=== PATIENT | female | born 1940 | race Caucasian/White ===

== ENCOUNTER 2016-11-25 09:30 | Inpatient (IN) | payer MEDICARE, OTHER ==
[~2016-11-25] VITALS: Ht 157.5 cm; Wt 73.9 kg
--- NOTE | ~2016-11-25 | HEMODYNAMI ---
PATIENT:DIANE DICK MEDICAL RECORD: [id number] : 36 LOCATION:[facility] [address] [place] [facility] [id number] ADMISSION DATE: 11/25/16 Generatedon:11/29/201610:56 Patient name: DIANE DICK Patient #: [id number] SSN: [id number] : 1940 Date of study: 11/29/2016 Page: Of Hemodynamic Procedure Report Patient Data Patient Demographics Procedure consent was obtained First Name: DIANE Gender: Female Last Name: KAPIL : 1940 [facility] Initial: F Age: 75 year(s) Patient #: [id number] Race: SSN: [id number] Additional ID: [id number] Contact details [address]: [address] [place] [address] State: [place] City: [place] Zip code: [address] Past Medical History Allergies Allergen Reaction Date Comments Reported Other allergy 11/28/2016 codeine Admission Admission Data Admission Date: 11/25/2016 Admission Time: 12:36 Admit Source: Other Insurance Payor: Medicare, Room #: D.2111 Private health insurance Height (in.): 62 BSA: 1.75 (m2) Height (cm.): 157.48 BMI: 29.84 (kg/m2) Weight (lbs.): 163.14 Weight (kg.): 74 Medications upon Admission Medications Dosage Times Administered Last Remarks per Delivery Day Date and Time Clopidogrel Yes 11/27/2016 0:00 Lab Results Lab Result Date: 11/29/2016 Lab Result Time: 0:00 Biochemistry Name Units Result Min Max BUN mg/dl 22 --(----)-* 7 18 Creatinine mg/dl 0.9 --(-*--)-- 0.6 1.3 CBC Name Units Result Min Max Hemoglobin g/dl 10.4 *-(----)-- 13.5 17.5 Procedure Procedure Types Cath Procedure PCI Procedure Coronary Stent Initial Procedure Description Procedure Date Procedure Date: 11/29/2016 Procedure Start Time: 10:40 Procedure End Time: 10:54 Procedure Staff Name Function Antonio Karimi MD Performing Physician David Burr RT Scrub Manda Garcia RN Nurse Bashir Adams RT Glove Pairer Regina Chi RT Monitor Procedure Data Cath Procedure Fluoroscopy Diagnostic fluoroscopy Total fluoroscopy Time: 3.9 time: 3.9 min min Diagnostic fluoroscopy Total fluoroscopy dose: 175 dose: 175 mGy mGy Contrast Material Contrast Material Type Amount (ml) Isovue 300 79 Entry Location Entry Primary Successful Side Size Upsize Upsize Entry Closure Succes sful Closure Location (Fr) 1 (Fr) 2 (Fr) Remarks Device Remarks Femoral Right 6 Fr Vascade artery Short Closure System Estimated blood loss: 10 ml Procedure Complications No complications Procedure Medications Medication Administration Route Dosage Oxygen NC 3 l/min Lidocaine 2% added to field 20 Heparin Flush Bag added to field 2 bags (1000units/500ml NS) 0.9% NaCl I.V. 100 ml/hr Versed I.V. 1 mg Fentanyl I.V. 50 mcg Heparin Bolus I.V. 4000 units Versed I.V. 0.5 mg Fentanyl I.V. 25 mcg Hemodynamics Rest BSA: 1.75 (m2) HGB: 10.4 (g/dl) O2 Consumption: Estimated: 168.27 (ml/min) O2 Co nsumption indexed: Estimated:96.15 (ml/min/m) Heart Rate: 85 (bpm) Snapshots Pre Cath Intra NCS Post Cath Vital Signs Time Heart Resp SPO2 etCO2 [id number] NIBP Rhythm Pain Sedation Rate (ipm) (%) (mmHg) (mmHg) (mmHg) Status Level (bpm) 10:29:14 85 16 93 0 0 116/63(92) NSR 0 (11) 10(A) , No pain 10:33:20 85 19 92 0 0 98/55(76) NSR 0 (11) 10(A) , No pain 10:37:26 84 18 92 0 0 100/58(76) NSR 0 (11) 10(A) , No pain 10:41:30 84 15 92 0 0 96/57(73) NSR 0 (11) 10(A) , No pain 10:45:36 84 13 92 0 0 100/54(68) NSR 0 (11) 9(A) , No pain 10:49:41 86 17 92 0 0 95/56(70) NSR 0 (11) 9(A) , No pain 10:53:45 87 14 91 0 0 111/63(86) NSR 0 (11) 10(A) , No pain Medications Time Medication Route Dose Verified Delivered Reason Notes Effectiveness by by 10:28:25 Oxygen NC 3 Antonio Buffie used for l/min Trev Garcia RN procedure 10:28:33 Lidocaine 2% added 20ml Antonio Antonio for local to vial Trev Karimi MD anesthetic field 10:28:40 Heparin Flush added 2 Antonio Antonio used for Bag to bags Trev Kariim MD procedure (1000units/500ml field NS) 10:28:48 0.9% NaCl I.V. 100 Antonio Buffie Per physician ml/hr Trev Garcia RN 10:40:22 Versed I.V. 1 mg Antonio Larryie for sedation Trev Garcia RN 10:40:28 Fentanyl I.V. 50 Antonio Buffie for sedation mcg Trev Garcia RN 10:44:20 Versed I.V. 0.5 Antonio Buffie for sedation mg Trev Garcia RN 10:44:26 Fentanyl I.V. 25 Antonio Buffie for sedation mcg Trev Garcia RN 10:46:19 Heparin Bolus I.V. 4000 Antoniosydnie Larryie for verifi ed units Trev Garcia RN anticoagulation with dr karimi Procedure Log Time Note 10:00:42 Bashir Adams RT(R) sent for patient. Start room use. 10:12:58 Patient Height : 62 cm 10:12:58 Patient Weight : 163.14 kg 10:13:47 Time tracking: Regular hours 10:13:51 Plan of Care:Hemodynamics will remain stable., Cardiac rhythm will remain stable., Comfort level will be maintained., Respiratory function will remain adequate., Patient/ family verbilizes understanding of procedure., Procedure tolerated without complication., Recovers from procedure without complications.. 10:13:57 Patient received from PCU to CCL 2 Alert and oriented. Tansferred to table in Supine position. 10:13:57 Warm blankets applied, and tim hugger turned on for patient comfort. 10:13:58 Correct patient and procedure confirmed by team. 10:13:59 Signed procedure consent form obtained from patient. 10:14:00 ECG and BP/O2 sat monitors applied to patient. 10:14:01 Full Disclosure recording started 10:17:00 Admit Source: Other 10:17:05 ACC Patient presents with Stable Angina CCS Anginal Class 2--Slight limitation of ordinary activity. 10:17:11 Diagnostic Cath status Elective 10:20:47 H&P Date Dictated: 11/29/2016 Within 30 days and on chart.. 10:20:51 Pre-procedure instructions explained to patient. 10:20:53 Family in waiting room. 10:20:55 Patient NPO since Midnight. 10:21:32 Is the patient allergic to Iodine/contrast media? No. 10:21:34 Is patient on blood thinner?Yes 10:21:48 ACC The patient was administered the following blood thiners within the last 24 hours: ACCPlavix 10:22:03 Patient diabetic? No. 10:22:13 Snore? No 10:22:15 Sleep apnea? No 10:22:17 Opens mouth fully? Yes 10:22:18 Sticks out tongue? Yes 10:22:29 Airway obstruction? Yes COPD 10:22:34 Dentures? Yes tight 10:22:54 IV patent on arrival in right forearm with 0.9% NaCl at [facility]. 10:26:04 Lab Result : Creatinine 0.9 mg/dl 10:26:04 Lab Result : BUN 22 mg/dl 10:26:04 Lab Result : Hemoglobin 10.4 g/dl 10:26:09 Lab results completed and on chart. 10:26:12 Left groin area was prepped with chlora-prep and draped in sterile fashion 10::14 Alarms reviewed by RVashti NVashti 10:26:17 Physician paged 10:28:14 Vital chart was started 10:28:25 Oxygen 3 l/min NC was given by Manda Garcia RN; used for procedure; 10::33 Lidocaine 2% 20ml vial added to field was given by Antonio Karimi MD; for local anesthetic; 10:28:40 Heparin Flush Bag (1000units/500ml NS) 2 bags added to field was given by Antonio Karimi MD; used for procedure; 10:28:48 0.9% NaCl 100 ml/hr I.V. was given by Manda Garcia RN; Per physician; 10:29:04 Baseline sample Acquired. 10:29:15 Rhythm: sinus rhythm 10:30:26 Use device set Femoral PCI 10:30:27 Acist Syringe opened to sterile field. 10:30:28 Acist Hand Control opened to sterile field. 10:30:29 Bag Decanter opened to sterile field. 10:30:29 Cardinal Cath Pack opened to sterile field. 10:30:29 Terumo 6Fr Amagon Sheath opened to sterile field. 10:30:30 St Jonathan 260cm J .035 wire opened to sterile field. 10:30:31 Merit BasixCompak Inflation Kit opened to sterile field. 10:30:32 Acist Manifold opened to sterile field. 10:30:33 Tegaderm 4 x 4 opened to sterile field. 10:30:46 Pagan Whisper J 300cm 0.014 guide wire opened to sterile field. 10:38:59 Physician arrived 10:39:00 --------ALL STOP TIME OUT------ 10:39:01 Final Timeout: patient, procedure, and site verified with staff and physician. All members of the team are in agreement. 10:39:04 Left groin site verified by team. 10:40:22 Versed 1 mg I.V. was given by Manda Garcia RN; for sedation; 10:40:28 Fentanyl 50 mcg I.V. was given by Manda Garcia RN; for sedation; 10:40:36 Physical assessment completed. ASA score P 2 - A patient with mild systemic disease as per Antonio Karimi MD. 10:40:40 Sedation plan: IV Moderate Sedation Versed, Fentanyl 10:40:44 Procedure started. 10:40:49 Local anesthetic to left femerol artery with Lidocaine 2% by Antonio Karimi MD.INITIAL ACCESS ONLY 10:40:59 A 6 Fr Short sheath was inserted into the Right Femoral artery 10:41:05 J wire advanced. 10:41:40 ACC PCI Site: pRCA has 80% stenosis. 10:41:51 6 Fr AR2 guide catheter was inserted over the wire 10:41:57 Whisper wire advanced. 10:42:13 Standard Treasurytronic Launcher 6Fr AR 2.0 SH guide catheter opened to sterile field. 10:42:22 Zero performed for pressure channel P1 10:44:20 Versed 0.5 mg I.V. was given by Manda Garcia RN; for sedation; 10:44:26 Fentanyl 25 mcg I.V. was given by Manda Garcia RN; for sedation; 10:45:50 ACC Post-intervention LAURIE Flow is 3. 10:45:55 Wire advanced across lesion. 10:46:19 Heparin Bolus 4000 units I.V. was given by Manda Garcia RN; for anticoagulation; verified with dr karimi 10:49:01 Inflation Number: 1 A Medtronic Resolute 3.5 X 9 stent was prepped and advanced across the Prox RCA. The stent was deployed at 17 ELSA for 0:10 (min:sec). 10:49:58 Vascade 6/7 Fr Closure Device opened to sterile field. 10:50:03 Guide catheter removed. 10:51:11 Sheath removed intact; hemostasis achieved with Vascade Closure System to the Right Femoral artery. 10:51:15 Procedure ended.(Physican Out) 10:51:32 Fluoroscopy time 03.90 minutes. 10:51:41 Flurop Dose total: 175 10:51:41 Fluoroscopy dose: 175 mGy 10:51:47 Contrast amount:Isovue 300 79ml. 10:51:56 Insertion/operative site no bleeding no hematoma. 10:52:03 Post-op/insertion site Right Femoral artery dressed using a 4 x 4 and Tegaderm. 10:52:08 Post-op/insertion site Left Femoral artery dressed using a 4 x 4 and Tegaderm. 10:52:27 Post left femerol artery:stable 10:52:29 Post Procedure Pulses reassessed and unchanged 10:52:33 Post-procedure physical assessment completed. ASA score P 2 - A patient with mild systemic disease as per Antonio Karimi MD. 10:52:36 Post procedure rhythm: unchanged. 10:52:39 Estimated blood loss: 10 ml 10:52:41 Post procedure instruction explained to patient.Patient verbalizes understanding. 10:52:48 Procedure and supply charges have been captured, reviewed, submitted and are correct. 10:53:33 Procedure Complication : No complications 10:53:38 Vital chart was stopped 10:53:39 See physician's report for complete and final results. 10:53:51 Report given to Med II. 10:53:53 Patient transfered to [facility] II with Bed. 10:54:04 Procedure ended. 10:54:04 Full Disclosure recording stopped 10:54:10 End room use (Document Last) Intervention Summary Intervention Notes Time ActionType Lesion and Equipment Action# Pressure Duration Attributes Used 10:49:[address] Place stent Prox RCA Medtronic 1 17 00:10 Resolute 3.5 X 9 stent Device Usage Item Name Manufacture Quantity Catalog Hospital Part Current Minima l Lot# / Number Charge Number Stock Stock Serial# Code Acist Acist 1 [id number] [id number] [id number] 176000 20 Syringe Medical Systems Inc Acist Hand Acist 1 79628 420729 795943 054737 5 Control Medical Systems Inc Bag Microtek 1 2002S 590074 50088 309772 5 DecELIKE Medical Inc. Cardinal Cardinal 1 [id number] 695123 21036 890800 5 Green[employer] Health Terumo 6Fr Terumo 1 [id number] 028958 991221 558527 [address] St Jonathan 1 [id number] 104447 511626 576139 30 260cm J .035 wire Merit Merit 1 [id number] 656049 226554 081149 15 BasixCar[employer] Partnersk Medical Inflation Kit Acist Acist 1 59051 776578 644271 035349 5 Manifold Medical Systems Inc Tegaderm 4 3M 1 1626W 763771 290937 754251 5 x 4 Pagan Pagan 1 [id number] 638920 404690 017480 5 Whisper J Vascular 300cm 0.014 guide wire Medtronic Medtronic 1 [id number] 613616 84663 952289 1 Launcher 6Fr AR 2.0 SH guide catheter Medtronic Medtronic 1 [id number] [id number] 7 [id number] Resolute 3.5 X 9 stent Vascade 6/7 Cardiva 1 [id number] 249825 544348 376645 5 Fr Closure Medical, Device Inc. Signature Audit [place] Stage Time Signature Unsigned Intra-Procedure 11/29/2016 Regina Chi 10:55:57 AM RT(R) Signatures Monitor : Regina Chi Signature : RT Date : Time : [place] [id number] [place] [address]
--- NOTE | ~2016-11-25 | HEMODYNAMI ---
PATIENT:DIANE DICK MEDICAL RECORD: [id number] : 36 LOC[id number] ADMISSION DATE: 11/25/16 Generatedon:11/28/201611:27 Patient name: DIANE DICK Patient #: [id number] SSN: [id number] : 1940 Date of study: 11/28/2016 Page: Of Hemodynamic Procedure Report Patient Data Patient Demographics Procedure consent was obtained First Name: DIANE Gender: Female Last Name: KAPIL : 1940 Middle Initial: F Age: 75 year(s) Patient #: [id number] Race: SSN: [id number] Additional ID: [id number] Contact details Address: [address] [place] [address] State: [place] City: [place] Zip code: [address] Past Medical History Allergies Allergen Reaction Date Comments Reported Other allergy 11/28/2016 codeine Admission Admission Data Admission Date: 11/25/2016 Admission Time: 12:36 Admit Source: Other Insurance Payor: Medicare, Room #: D.2111 Private health insurance Height (in.): 62 BSA: 1.75 (m2) Height (cm.): 157.48 BMI: 29.84 (kg/m2) Weight (lbs.): 163.14 Weight (kg.): 74 Medications upon Admission Medications Dosage Times Administered Last Remarks per Delivery Day Date and Time Clopidogrel Yes 11/27/2016 0:00 Lab Results Lab Result Date: 11/28/2016 Lab Result Time: 4:50 Biochemistry Name Units Result Min Max Creatinine mg/dl 0.8 --(-*--)-- 0.6 1.3 CBC Name Units Result Min Max Hemoglobin g/dl 10.9 *-(----)-- 13.5 17.5 Procedure Procedure Types Cath Procedure Diagnostic Procedure [facility] w/Coronaries FFR/IVUS Intra-Coronary IVUS Initial Intra-Coronary IVUS Additional PCI Procedure Coronary Stent Initial Procedure Description Procedure Date Procedure Date: 11/28/2016 Procedure Start Time: 11:00 Procedure End Time: 11:18 Procedure Staff Name Function Thais Medrano RT Scrub Bashir Adams RT Clerical Adjuster Manda Garcia RN Nurse Antonio Karimi MD Performing Physician David Burr RT Monitor Procedure Data Cath Procedure Fluoroscopy Diagnostic fluoroscopy Total fluoroscopy Time: 5.2 time: 5.2 min min Diagnostic fluoroscopy Total fluoroscopy dose: 382 dose: 382 mGy mGy Contrast Material Contrast Material Type Amount (ml) Isovue 300 112 Entry Location Entry Primary Successful Side Size Upsize Upsize Entry Closure Succes sful Closure Location (Fr) 1 (Fr) 2 (Fr) Remarks Device Remarks Femoral Right 5 Fr 6 Fr Vascade artery Short Closure System Estimated blood loss: 10 ml Diagnostic catheters Device Type Used For End Catheter Placement Cordis 5Fr Pigtail Procedure Catheter (MP) Cordis 5Fr JL 4.0 Procedure Catheter (MP) Cordis 5Fr 3DRC Catheter Procedure (MP) Cordis Infinity 5Fr AR 2 Procedure MOD catheter Procedure Complications No complications Procedure Medications Medication Administration Route Dosage Oxygen NC 2 l/min Benadryl I.V. 50 mg 0.9% NaCl I.V. 100 ml/hr Lidocaine 2% added to field 20 Heparin Flush Bag added to field 2 bags (1000units/500ml NS) Versed I.V. 1 mg Fentanyl I.V. 50 mcg Versed I.V. 1 mg Fentanyl I.V. 50 mcg Heparin Bolus I.V. 4000 units Versed I.V. 0.5 mg Fentanyl I.V. 25 mcg Hemodynamics Rest BSA: 1.75 (m2) HGB: 10.9 (g/dl) O2 Consumption: Estimated: 170.62 (ml/min) O2 Co nsumption indexed: Estimated:97.5 (ml/min/m) Heart Rate: 88 (bpm) Snapshots Pre Cath Intra NCS Post Cath Vital Signs Time Heart Resp SPO2 etCO2 DK5umem NIBP (mmHg) Rhythm Pain Sedation Rate (ipm) (%) (mmHg) (mmHg) Status Level (bpm) 10:24:00 89 19 95 0 0 130/73(105) NSR 0 (11) 10(A) , No pain 10:28:14 90 16 97 0 0 130/72(109) NSR 0 (11) 10(A) , No pain 10:32:24 92 13 98 0 0 125/68(94) NSR 0 (11) 10(A) , No pain 10:36:40 91 14 100 0 0 129/61(88) NSR 0 (11) 10(A) , No pain 10:40:56 91 17 97 0 0 131/66(94) NSR 0 (11) 10(A) , No pain 10:45:06 95 27 97 0 0 141/75(94) NSR 0 (11) 10(A) , No pain 10:49:24 95 18 99 0 0 139/70(107) NSR 0 (11) 10(A) , No pain 10:53:40 95 15 97 0 0 137/70(100) NSR 0 (11) 10(A) , No pain 10:57:56 95 18 96 0 0 137/69(107) NSR 0 (11) 10(A) , No pain 11:02:12 94 15 96 0 0 125/63(89) NSR 0 (11) 9(A) , No pain 11:06:28 98 15 97 0 0 125/61(86) NSR 0 (11) 9(A) , No pain 11:10:42 95 16 95 0 0 118/60(92) NSR 0 (11) 9(A) , No pain 11:14:52 98 16 97 0 0 132/69(98) NSR 0 (11) 10(A) , No pain 11:19:08 97 16 0 0 144/70(112) NSR 0 (11) 10(A) , No pain Medications Time Medication Route Dose Verified Delivered Reason Notes Effectiveness by by 10:18:48 Oxygen NC 2 Antonio Buffie used for l/min Trev Garcia RN procedure 10:22:47 Benadryl I.V. 50 mg Antonio Buffie used for Trev Garcia RN procedure 10:22:55 0.9% NaCl I.V. 100 Antonio Buffie Per physician ml/hr Trev Garcia RN 10:23:06 Lidocaine 2% added 20ml Antonio Alvarez for local to vial Trev Karimi MD anesthetic field 10:23:12 Heparin Flush added 2 Antoniosydnie Alvarez used for Bag to bags Trev Karimi MD procedure (1000units/500ml field NS) 10:59:03 Versed I.V. 1 mg Antonio Holman for sedation Trev Garcia RN 10:59:09 Fentanyl I.V. 50 Antonio Holman for sedation mcg Trev Garcia RN 11:02:34 Versed I.V. 1 mg Antonio Holman for sedation Trev Garcia RN 11:02:37 Fentanyl I.V. 50 Antonio Holman for sedation mcg Trev Garcia RN 11:06:58 Heparin Bolus I.V. 4000 Antonio Holman for units Trev Garcia RN anticoagulation 11:08:44 Versed I.V. 0.5 Antonio Larryie for sedation mg Trev Garcia RN 11:08:48 Fentanyl I.V. 25 Antonio Holman for sedation mcg Trev Garcia RN Procedure Log Time Note 10:00:37 Bashir Adams RT(R) sent for patient. Start room use. 10:00:38 Time tracking: Regular hours 10:00:41 Plan of Care:Hemodynamics will remain stable., Cardiac rhythm will remain stable., Comfort level will be maintained., Respiratory function will remain adequate., Patient/ family verbilizes understanding of procedure., Procedure tolerated without complication., Recovers from procedure without complications.. 10:08:04 Patient received from Med II to CCL 2 Alert and oriented. Tansferred to table in Supine position. 10:08:05 Correct patient and procedure confirmed by team. 10:08:05 Warm blankets applied, and tim hugger turned on for patient comfort. 10:08:08 Signed procedure consent form obtained from patient. 10:08:09 ECG and BP/O2 sat monitors applied to patient. 10:18:48 Oxygen 2 l/min NC was given by Manda Garcia RN; used for procedure; 10:22:47 Benadryl 50 mg I.V. was given by Manda Garcia RN; used for procedure; 10:22:55 0.9% NaCl 100 ml/hr I.V. was given by Manda Garcia RN; Per physician; 10:23:01 Vital chart was started 10:23:04 Baseline sample Acquired. 10:23:06 Lidocaine 2% 20ml vial added to field was given by Antonio Karimi MD; for local anesthetic; 10:23:11 Rhythm: sinus rhythm 10:23:12 Heparin Flush Bag (1000units/500ml NS) 2 bags added to field was given by Antonio Karimi MD; used for procedure; 10:23:16 H&P Date Dictated: 11/28/2016 Within 30 days and on chart.. 10:23:19 Pre-procedure instructions explained to patient. 10:23:20 Pre-op teaching completed and patient verbalized understanding. 10:23:21 Family in patients room. 10:23:23 Patient NPO since Midnight. 10:23:33 Patient allergic to Other allergycodeine 10:23:36 Is the patient allergic to Iodine/contrast media? No. 10:23:38 Is patient on blood thinner?Yes 10:24:21 ACC The patient was administered the following blood thiners within the last 24 hours: ACCPlavix 10:24:24 Patient diabetic? No. 10:24:28 Previous problem with sedation/anesthesia? No ? 10:24:29 Snore? No 10:24:30 Sleep apnea? No 10:24:31 Deviated septum? No 10:24:32 Opens mouth fully? Yes 10:24:33 Sticks out tongue? Yes 10:24:38 Airway obstruction? Yes COPD 10:24:42 Dentures? Yes in tight 10:24:46 Pre procedure: right dorsailis pedis pulse 2+ Normal; easily identifiable; not easily obliterated 10:24:48 Patient pain scale 0/10 ?. 10:24:53 IV patent on arrival in right antecubital with 0.9% NaCl at O. 10:26:07 Lab Result : Hemoglobin 10.9 g/dl 10:26:07 Lab Result : Creatinine 0.8 mg/dl 10:26:11 Lab results completed and on chart. 10:26:14 Right groin area was prepped with chlora-prep and draped in sterile fashion 10:26:15 Sharps counted by scrub and verified by R.N. 10:26:15 Alarms reviewed by R. N. 10:26:17 Physician paged 10:26:19 Use device set Femoral Dx 10:26:21 Tegaderm 4 x 4 opened to sterile field. 10:26:22 Acist Manifold opened to sterile field. 10:26:22 Acist Hand Control opened to sterile field. 10:26:23 Acist Syringe opened to sterile field. 10:26:24 Cardinal Cath Pack opened to sterile field. 10:26:35 Terumo 5Fr [place] Sheath opened to sterile field. 10:26:36 St Jonathan 260cm J .035 wire opened to sterile field. 10:26:37 Cordis Infinity 5Fr Multipack catheter opened to sterile field. 10:26:38 Bag Decanter opened to sterile field. 10:30:15 Zero performed for pressure channel P1 10:30:23 Zero performed for pressure channel P1 10:31:14 Admit Source: Other 10:31:37 Patient Height : 62 cm 10:31:42 Patient Weight : 163.14 kg 10:31:52 Insurance Payor : Private health insurance, Medicare 10:58:47 --------ALL STOP TIME OUT------ 10:58:47 Physician arrived 10:58:48 Final Timeout: patient, procedure, and site verified with staff and physician. All members of the team are in agreement. 10:58:49 Right groin site verified by team. 10:58:51 Physical assessment completed. ASA score P 2 - A patient with mild systemic disease as per Antonio Karimi MD. 10:58:55 Sedation plan: IV Moderate Sedation Versed, Fentanyl 10:59:03 Versed 1 mg I.V. was given by Manda Garcia RN; for sedation; 10:59:09 Fentanyl 50 mcg I.V. was given by Manda Garcia RN; for sedation; 11:00:11 Full Disclosure recording started 11:00:11 Procedure started. 11:00:14 Local anesthetic to right femoral artery with Lidocaine 2% by Antonio Karimi MD.INITIAL ACCESS ONLY 11:00:36 A 5 Fr sheath was inserted into the Right Femoral artery 11:00:45 A Cordis 5Fr Pigtail Catheter (MP) was advanced over the wire and used for Procedure. 11:01:17 LV gram done using NIETO 11:01:22 EF : 60 % 11:01:25 Injector settings: Ml/sec: 7, Volume: 15, 11:01:27 Catheter exchanged over wire. 11:01:31 A Cordis 5Fr JL 4.0 Catheter (MP) was advanced over the wire and used for Procedure. 11:01:43 LCA angiography performed. 11:02:11 Pagan Whisper J 300cm 0.014 guide wire opened to sterile field. 11:02:12 [employer] BasixCompak Inflation Kit opened to sterile field. 11:02:12 Terumo 6Fr [place] Sheath opened to sterile field. 11:02:34 Versed 1 mg I.V. was given by Manda Garcia RN; for sedation; 11:02:37 Fentanyl 50 mcg I.V. was given by Manda Garcia RN; for sedation; 11:02:50 Catheter exchanged over wire. 11:02:54 A Cordis 5Fr 3DRC Catheter (MP) was advanced over the wire and used for Procedure. 11:04:09 Catheter removed. unable to cannulate vessel. 11:04:19 A Cordis Infinity 5Fr AR 2 MOD catheter was advanced over the wire and used for Procedure. 11:05:35 RCA angiography performed. 11:06:39 Catheter removed. 11:06:40 Proceeding to intervention. 11:06:50 Sheath upsized to a 6 Fr Short. 11:06:58 Heparin Bolus 4000 units I.V. was given by Manda Garcia RN; for anticoagulation; 11:07:29 Paden Tyonek Eagleye IVUS Catheter opened to sterile field. 11:07:44 Cordis 6FR XB 3.5 guide catheter opened to sterile field. 11:07:51 6 Fr xblad 3.5 guide catheter was inserted over the wire 11:07:54 whisper wire advanced. 11:07:58 IVUS catheter advanced over wire. 11:07:59 Wire advanced across lesion. 11:08:05 IVUS pass to Circ lesion performed. 11:08:44 Versed 0.5 mg I.V. was given by Manda Garcia RN; for sedation; 11:08:48 Fentanyl 25 mcg I.V. was given by Manda Garcia RN; for sedation; 11:09:30 IVUS catheter removed over wire. 11:09:32 Wire redirected to LAD. 11:10:05 IVUS catheter advanced over wire. 11:10:09 IVUS pass to LAD lesion performed. 11:11:28 IVUS catheter removed over wire. 11:13:13 Inflation Number: 1 A Medtronic Resolute 3.0 X 22 stent was prepped and advanced across the Mid LAD. The stent was deployed at 13 ELSA for 0:10 (min:sec). 11:14:15 Stent catheter was removed intact over wire. 11:14:16 Wire removed. 11:14:18 Guide catheter removed. 11:14:24 Vascade 6/7 Fr Closure Device opened to sterile field. 11:14:47 Sheath removed intact; hemostasis achieved with Vascade Closure System to the Right Femoral artery. 11:14:49 Procedure ended.(Physican Out) 11:16:00 Fluoroscopy time 05.20 minutes. 11:16:03 Fluoroscopy dose: 382 mGy 11:16:03 Flurop Dose total: 382 11:16:08 Contrast amount:Isovue 300 112ml. 11:16:10 Sharps counted by scrub and verified by R.N. 11:16:13 Insertion/operative site no bleeding no hematoma. 11:16:15 Post-op/insertion site Right Femoral artery dressed using a 4 x 4 and Tegaderm. 11:16:21 Post right femoral artery:stable, soft, clean and dry 11:16:22 Post Procedure Pulses reassessed and unchanged 11:16:24 Post-procedure physical assessment completed. ASA score P 2 - A patient with mild systemic disease as per Antonio Karimi MD. 11:16:27 Post procedure rhythm: unchanged. 11:16:29 Estimated blood loss: 10 ml 11:16:31 Patient needs reinforcement of post procedure teaching. 11:16:31 Post procedure instruction explained to patient.Patient verbalizes understanding. 11:17:48 Procedure type changed to Cath procedure, Diagnostic procedure, LHC, LHC w/Coronaries, FFR/IVUS, Intra-Coronary IVUS Initial, Intra-Coronary IVUS Additional, PCI procedure, Coronary Stent Initial 11:18:14 Procedure and supply charges have been captured, reviewed, submitted and are correct. 11:18:16 Procedure Complication : No complications 11:18:18 Vital chart was stopped 11:18:20 See physician's report for complete and final results. 11:18:23 Report given to PCU. 11:18:26 Patient transfered to PCU with Stretcher. 11:18:45 Full Disclosure recording stopped 11:18:45 Procedure ended. 11:19:02 ACC-PCI Only Patient was given prescriptions, or instructed by Antonio Karimi MD to start/continue the following medications upon discharge: Plavix 11:19:27 End room use (Document Last) Intervention Summary Intervention Notes Time ActionType Lesion and Equipment Action# Pressure Duration Attributes Used 11:13:13 Place stent Mid LAD Medtronic 1 13 00:10 Resolute 3.0 X 22 stent Device Usage Item Name Manufacture Quantity Catalog Hospital Part Current Minima l Lot# / Number Charge Number Stock Stock Serial# Code Tegaderm 4 1 [id number] [id number] 5 x 4 Acist Hand Acist 1 38393 501575 816974 262764 5 Control Medical Systems Inc Acist Acist 1 63868 664020 468070 344102 5 Manifold Medical Systems Inc Acist Acist 1 57871 297398 851972 814310 20 Syringe Medical Systems Inc Cardinal Cardinal 1 [id number] 894802 14442 980084 5 Cath Pack Health Terumo 5Fr Terumo 1 [id number] 548397 305616 822930 [address] Jonathan 1 098889 762935 713540 791890 30 260cm J .035 wire Cordis Cardinal 1 [id number] 928651 94849 579299 30 Infinity Health 5Fr Multipack catheter Bag Microtek 1 2002S 623207 22095 433880 5 [employer] Cordis 5Fr Cardinal 1 472129 5 Pigtail Health Catheter (MP) Cordis 5Fr Cardinal 1 658959 5 JL 4.0 Health Catheter (MP) Pagan Pagan 1 [id number] 582270 299103 233259 5 Whisper J Vascular 300cm 0.014 guide wire Terumo 6Fr Terumo 1 [id number] 413276 651930 233682 40 [place]one[place]e Sheath Merit Merit 1 HP6314 151029 399615 517910 15 [employer] Medical Inflation Kit Cordis 5Fr Cardinal 1 751690 5 3DRC Health Catheter (MP) Cordis Cardinal 1 [id number] 790796 238887 764129 20 Infinity Health 5Fr AR 2 MOD catheter Paden Paden 1 [id number] 390241 173795 544067 8 Tyonek Eagleye IVUS Catheter Cordis 6FR Cardinal 1 [id number] 774014 432566 559915 2 XB 3.5 Health guide catheter Medtronic Medtronic 1 [id number] 676431 606807 2 [id number] Resolute 3.0 X 22 stent Vascade 04/19 Cardiva 1 [id number] 201185 320120 537805 5 Fr Closure Medical, Device Inc. Signature Audit [place] Stage Time Signature Unsigned Intra-Procedure 11/28/2016 David Plascencia Counts 11:22:50 AM RT(R) RT(R) 11/28/2016 11:25:48 AM Intra-Procedure 11/28/2016 David Burr 11:27:01 AM RT(R) Signatures Monitor : David Burr RT Signature : Date : Time : [id number] [place] [address]
[~2016-11-25 09:30] MED LIST: AMBIEN5 MG PO; ATIVAN0.5 MG PO; BOUDREAUXS113 GM TP; CELEBREX 100 M100 MG PO; CELEBREX200 MG PO; CO Q-1030 MG PO; COLACE100 MG PO; COREG 3.1253.125 MG PO; COREG12.5 MG PO; COUMADIN2.5 MG PO; COUMADIN5 MG PO; DILAUDID2 MG PO; DULCOLAX10 MG/SUPP RC; DUONEB 2.5-0.5 M3 ML UPD; FISH OIL 1,2001 CA1 PO; GLUCOSAMINE & C1 CAP PO; IMDUR30 MG PO; IPRAT-ALBUT 0.5-3 ML UPD; K-DUR20 MEQ PO; LASIX40 MG PO; LISINOPRIL10 MG PO; LISINOPRIL5 MG PO; LOVENOX30 MG/0.3 SQ; MIRALAX17 GM PO; MUCINEX DM ER1 EAC1 PO; OMNICEF300 MG PO; PERFOROMIS20 MCG/21 INH; PREDNISONE10 MG PO; PREDNISONE5 MG PO; PRINZIDE 20/12.1 TAB PO; PROAIR HFA8.5 GM INH; PROTONIX40 MG PO; PULMICORT0.5 MG/21 INH; RESTORIL15 MG PO; SENOKOT-S TABLE1 TAB PO; SINGULAIR10 MG PO; SLOW FE142 MG PO; SYMBICORT 16010.2 GM INH; TESSALON PERLE100 MG PO; TYLENOL325 MG PO; VISTARIL25 MG PO; VITAMIN B-150 MG PO; VITAMIN D3400 UNI1 PO; ZITHROMAX250 MG PO
[2016-11-25 11:10] LABS: BASOPHILS 0.5 % (0.0-2.0); EOSINOPHILS 5.4 % (0-7); HEMATOCRIT 38.3 % (36.0-48.0); HEMOGLOBIN 12.2 g/dL (12-16); IMMATURE GRANULOCYTES 0.4 % (0-5); LYMPHOCYTES 19.8 % (15-50); MCH 28.6 pg (26.0-34.0); MCHC 31.9 g/dL (31.0-37.0); MCV 89.7 fL (80.0-100.0); MEAN PLATELET VOLUME 10.2 fL (7.4-10.4); MONOCYTES 13.7 % (2-11); NEUTROPHILS 60.2 % (40-80); PLATELET COUNT 181 10x3/uL (130-400); RBC 4.27 10x6/uL (4.00-5.40); RDW 14.7 % (11.5-14.5); WBC 13.7 10x3/uL (4.8-10.8)
[2016-11-25 11:34] LABS: ALBUMIN 2.4 g/dL (3.4-5.0); ALKALINE PHOSPHATASE 81 U/L (46-116); ALT (SGPT) 22 U/L (10-68); BILIRUBIN - TOTAL 0.44 mg/dL (0.2-1.3); CALC OSMOLALITY 278 mosm/kg (275-300); CALCIUM 9.6 mg/dL (8.5-10.1); CARBON DIOXIDE 39.3 mmol/L (21.0-32.0); CHLORIDE - SERUM 95 mmol/L (98-107); CREATININE - SERUM 0.7 mg/dL (0.6-1.3); GLUCOSE 95 mg/dL (74-106); POTASSIUM - SERUM 3.5 mmol/L (3.5-5.1); PROTEIN - SERUM 7.4 g/dL (6.4-8.2); SODIUM 139 mmol/L (136-145); UREA NITROGEN 16 mg/dL (7-18); eGFR NON AFRICAN AMERICAN 86 mL/min (90-120)
[2016-11-25 11:44] LABS: APTT 26.5 SECONDS (22.8-39.4); INR 1.05 (0.85-1.17); PROTIME 13.6 SECONDS (11.6-15.0)
[2016-11-25 11:55] LABS: CREATINE KINASE 24 UL (21-215); PRO BNP 1725 pg/mL (0-450)
[2016-11-25 13:21] LABS: APPEARANCE CLEAR (CLEAR); BILIRUBIN NEGATIVE (NEGATIVE); COLOR STRAW (YELLOW); GLUCOSE NEGATIVE (NEGATIVE); KETONE NEGATIVE (NEGATIVE); LEUKOCYTE ESTERASE TRACE (NEGATIVE); NITRITE NEGATIVE (NEGATIVE); PROTEIN NEGATIVE (NEGATIVE); UROBILINOGEN NORMAL (NORMAL)
[2016-11-25 13:24] LABS: BACTERIA FEW /hpf (NONE SEEN); RED CELLS - URINE OCC /hpf (0-5); WHITE CELLS - URINE 0-5 /hpf (0-5)
--- NOTE | 2016-11-25 15:05 | NUR ---
REC'D PT FROM ER VIA WC. PT A/O. AMB WITH CANE, GAIT STEADY. NO DISTRESS NOTED. ORIENTED PT TO ROOM. PT DENIES NEEDS AT THIS TIME. TELEMETRY PLACED. CALL LIGHT WITH IN REACH. WILL CONT. TO MONITOR.
[2016-11-25 15:35] VITALS: BMI 28.6
[2016-11-25 16:00] VITALS: BP 124/62
--- NOTE | 2016-11-25 18:29 | NUR ---
PT SITTING IN CHAIR AT BEDSIDE. A/O. DENIES NEEDS AT THIS TIME. CALL LIGHT WITH IN REACH.
--- NOTE | 2016-11-25 19:48 | NUR ---
INITIAL ROUNDS RKIS Garcia 1920 HRS. PT UP IN CHAIR; DENIES ANY DISCOMFORT. WILL CONTINUE TO MONITOR.
[2016-11-25 20:35] VITALS: BP 94/48
--- NOTE | 2016-11-25 23:10 | NUR ---
SR PER CM HR 80. PT RESTING WITH EYES CLOSED. RESP EVEN AND REGULAR. SR UP X2, CALL LIGHT WITHIN REACH.
--- NOTE | 2016-11-26 00:39 | NUR ---
PT RESTING WITH EYES CLOSED. RESP EVEN AND REGULAR. SR UP X2, CALL LIGHT WITHIN REACH.
[2016-11-26 00:45] VITALS: BP 121/58
--- NOTE | 2016-11-26 03:03 | NUR ---
PT RESTING WITH EYES CLOSED. RESP EVEN AND REGULAR. SR UPX2, CALL LIGHT WITHIN REACH.
--- NOTE | 2016-11-26 04:17 | NUR ---
PT AWAKE; DENIES ANY DISCOMFORT. WILL CONTINUE TO MONITOR.
[2016-11-26 04:20] VITALS: BP 125/56
--- NOTE | 2016-11-26 06:37 | NUR ---
IV LASIX GIVEN THIS AM. VSS THROUGHOUT NIGHT. SR PER CM. PT DENIED ANY DISCOMFORT. NEEDS MET; WILL CONTINUE TO MONITOR.
[2016-11-26 07:47] VITALS: BP 135/69
--- NOTE | 2016-11-26 07:56 | NUR ---
0715-PATIENT IS UP IN CHAIR AT AM ROUNDING. [place] HAT IS PLACED IN RESTROOM FOR OUTPUT MONITORING. ON 3L PER NC, BILATEAL LUNGS ARE DIMINISHED. ON HEART MONTIOR SHWOING SR, HR 93. SALINE LOCK SEEN TO RIGHT AC. WILL CONTINUE TO MONITOR.
[2016-11-26 11:29] VITALS: Ht 157.5 cm; Wt 73.9 kg
[2016-11-26 11:50] VITALS: BP 121/55
[2016-11-26 15:54] VITALS: BP 127/60
--- NOTE | 2016-11-26 18:29 | NUR ---
PATIENT IS STILL IN CHAIR. DENIES NEEDS AT PRESENT TIME. WILL CONTINUE TO MONITOR.
[2016-11-26 20:10] VITALS: BP 122/56
--- NOTE | 2016-11-26 20:11 | NUR ---
INITIAL ROUNDS COMPLETED AT 1909 HRS. PT SITTING UP IN CHAIR. ASSESSMETN COMPLETED AT 1954 HRS. VSS. O2 3LNC. LUNGS DIMINISHED IN BASES BILAT. MORE SO TO LLL. IV TO RAC SL. ST PER CM HR 101. PT UP AD NOEL WITH CANE. DENIES ANY DISCOMFORT. CALL LIGHT WITHIN REACH.
--- NOTE | 2016-11-26 22:07 | NUR ---
PM MEDS GIVEN. WILL CONTINUE TO MONITOR. PT CURRENTLY UP IN RECLINER. CALL LIGHT WITHIN REACH.
--- NOTE | 2016-11-27 00:10 | NUR ---
PT RESTING WITH EYES CLOSED IN RECLINER. RESP EVEN AND REGULAR. CALL LIGHT WITHIN REACH.
[2016-11-27 00:35] VITALS: BP 118/63
--- NOTE | 2016-11-27 02:09 | NUR ---
PT RESTING WITH EYES CLOSEDIN RECLINER. RESP EVEN AND REGULAR. SR UP X2, CALL LIGHT WITHIN REACH.
[2016-11-27 04:28] VITALS: BP 114/63
--- NOTE | 2016-11-27 05:23 | NUR ---
PT RESTING WITH EYES CLOSED. RESP EVEN AND REGULAR. SR UP X2, CALL LIGHT WITHIN REACH.
[2016-11-27 06:18] LABS: BASOPHILS 0.7 % (0.0-2.0); EOSINOPHILS 13.6 % (0-7); HEMATOCRIT 36.9 % (36.0-48.0); HEMOGLOBIN 11.4 g/dL (12-16); IMMATURE GRANULOCYTES 0.3 % (0-5); LYMPHOCYTES 22.7 % (15-50); MCH 28.4 pg (26.0-34.0); MCHC 30.9 g/dL (31.0-37.0); MEAN PLATELET VOLUME 10.3 fL (7.4-10.4); MONOCYTES 11.5 % (2-11); NEUTROPHILS 51.2 % (40-80); PLATELET COUNT 189 10x3/uL (130-400); RBC 4.02 10x6/uL (4.00-5.40); RDW 14.8 % (11.5-14.5)
[2016-11-27 06:24] LABS: MCV 91.8 fL (80.0-100.0); WBC 8.6 10x3/uL (4.8-10.8)
[2016-11-27 06:57] LABS: ANION GAP 3.9 mmol/L (8-16); CALCIUM 9.2 mg/dL (8.5-10.1); CREATININE - SERUM 0.8 mg/dL (0.6-1.3); MAGNESIUM - SERUM 2.3 mg/dL (1.8-2.4); PHOSPHOROUS 3.7 mg/dL (2.5-4.9); POTASSIUM - SERUM 5.2 mmol/L (3.5-5.1)
[2016-11-27 06:58] LABS: CARBON DIOXIDE 43.3 mmol/L (21.0-32.0)
[2016-11-27 08:00] VITALS: BP 123/51
--- NOTE | 2016-11-27 11:34 | NUR ---
PT IS ALERT. ASSESSMENT DONE PER FLOWSHEET. NO CO PAIN AT THIS TIME. WILL CONTINUE TO MONITOR.
[2016-11-27 12:00] VITALS: BP 110/56
--- NOTE | 2016-11-27 12:35 | NUR ---
PT IS ALERT. NO CO PAIN AT THIS TIME. WILL CONTINUE TO MONITOR.
[2016-11-27 14:32] VITALS: BP 124/55
--- NOTE | 2016-11-27 15:03 | CN ---
PATIENT NAME:DIANE DICK MEDICAL RECORD: [id number] : 36 LOCATION:D. D.2111 ADMIT DATE: 11/25/16 ACCOUNT: [id number] CONSULTING PHYSICIAN: CARISSA DESHPANDE DO REFERRING PHYSICIAN: JULIETTE RIVERA MD DATE OF CONSULTATION: 11/26/2016 HISTORY OF PRESENT ILLNESS: A 75-year-old female consult for COPD, cough, and shortness of breath. PAST MEDICAL HISTORY: Significant for CHF, COPD, known significant cardiovascular disease, non-Q-wave myocardial infarction. HOME MEDICATIONS: Reported as Coumadin, potassium, Lasix, Imdur, Protonix, Coreg, and Singulair. PAST SURGICAL HISTORY: Right shoulder, prior heart catheterization. SOCIAL HISTORY: . REVIEW OF SYSTEMS: GENERAL: No acute change in weight or appetite. HEENT: No cephalgia, visual changes, tinnitus, epistaxis or dysphagia. CARDIOVASCULAR: As above, dyspnea on exertion, orthopnea. PULMONARY: Denies hemoptysis, denies night sweats. She does have persistent cough, shortness of breath. GASTROINTESTINAL: Denies hematemesis, hematochezia or melena. GENITOURINARY: Denies dysuria. MUSCULOSKELETAL: No acute changes. ENDOCRINE: Denies polyuria, polydipsia, or polyphagia. She also has a history of DVT with [place] filter in 2013. PHYSICAL EXAMINATION: VITAL SIGNS: Temperature 98.6, blood pressure is 121/55, O2 sats 98% with 2 liters via nasal cannula, heart rate 104, and respirations 19. GENERAL: Alert, oriented, mild distress secondary to above. HEENT: Normocephalic and atraumatic. Eyes: Pupils are equally round and reactive to light and accommodation. Extraocular muscles intact. Conjunctivae are not injected. Ears: Canals patent, TMs are intact. Nose: Nares patent without drainage. Throat: No erythema, no exudates. NECK: Supple. No lymphadenopathy, no JVD. HEART: Regular rate and rhythm. No S3, S4, no rub. LUNGS: Coarse rhonchi, left, spasmodic cough with deep inspiration. ABDOMEN: Soft and nontender. Bowel sounds all 4 quadrants. EXTREMITIES: Present times 4. NEUROLOGIC: Intact. SKIN: Warm and dry. No rash. IMAGING: Chest x-ray, signs of congestive failure with left lower lobe infiltrate versus atelectasis. ASSESSMENT AND PLAN: 1. Known coronary artery disease, heart catheterization planned on Monday. 2. Congestive heart failure, cautious diuresis. 3. Chronic obstructive pulmonary disease exacerbation with likely left lower CONSULT REPORT [id number] DIANE DICK F lobe infiltrate. 4. Respiratory therapy for induced sputum, C&S, Gram stain, IV Rocephin and doxycycline, Tessalon Perles for cough. TRANSINT:[id number] Voice Confirmation ID: [id number] DOCUMENT ID: [id number] CARISSA DESHPANDE DO at 1503 CC: [id number] DICTATION DATE: 11/26/16 1448 ENDOCRINOLOGY SPECIALIST: 11/26/16 1605 ADM IN [id number] [place] [address]
[2016-11-27 20:00] VITALS: BP 104/95
--- NOTE | 2016-11-27 20:00 | NUR ---
PT. SITTING UP IN CHAIR WATCHING TV. PT. DENIES ANY NEEDS AND HAS NO COMPLAINTS. ASSESSMENT COMPLETED. 02 @ 3L/MIN AND RT. A.C. I.V. IS A SALINE LOCK. CALL LIGHT WITHIN REACH FOR ANY NEEDS SHE MAY HAVE.
[2016-11-28 00:33] VITALS: BP 115/62
--- NOTE | 2016-11-28 03:51 | NUR ---
PT. UP IN RECLINER CHAIR WITH EYES CLOSED AND RESP. EVEN. CALL LIGHT WITHIN REACH.
[2016-11-28 05:02] LABS: BASOPHILS 0.7 % (0.0-2.0); EOSINOPHILS 13.8 % (0-7); HEMATOCRIT 35.9 % (36.0-48.0); HEMOGLOBIN 10.9 g/dL (12-16); IMMATURE GRANULOCYTES 0.3 % (0-5); LYMPHOCYTES 23.9 % (15-50); MCH 27.9 pg (26.0-34.0); MCHC 30.4 g/dL (31.0-37.0); MCV 92.1 fL (80.0-100.0); MEAN PLATELET VOLUME 10.3 fL (7.4-10.4); MONOCYTES 11.9 % (2-11); NEUTROPHILS 49.4 % (40-80); PLATELET COUNT 202 10x3/uL (130-400); RDW 14.8 % (11.5-14.5); WBC 7.5 10x3/uL (4.8-10.8)
[2016-11-28 05:19] VITALS: BP 110/54
[2016-11-28 05:23] LABS: CREATININE - SERUM 0.8 mg/dL (0.6-1.3)
[2016-11-28 05:37] LABS: ANION GAP 5.7 mmol/L (8-16); CARBON DIOXIDE 40.5 mmol/L (21.0-32.0); POTASSIUM - SERUM 4.2 mmol/L (3.5-5.1)
--- NOTE | 2016-11-28 07:00 | NUR ---
RECEIVED REPORT FROM ENTRY LEVEL JAVA DEVELOPER NURSE, JESUS RN. PT UP TO CHAIR, AT THIS TIME. STATED THAT SHE IS GOING FOR A HEART CATH TODAY, ASKED HER IF SHE HAS BEEN NPO SINCE MIDNIGHT PT STATED "YES". PT DENIES ANY NEEDS AT THIS TIME. CALL LIGHT IN REACH, NAD NOTED, WILL CONTINUE TO MONITOR.
--- NOTE | 2016-11-28 09:25 | NUR ---
PT NPO AT THIS TIME, NOT ABLE TO ADMINSITER MORNING MEDICATIONS, PT GOING FOR HEART CATH, WILL ADMINISTER MEDS WHEN SHE GETS BACK FROM THE OPERATOR PREFINISH. CONSENTS SIGNED AND PLACED ON CHART.
--- NOTE | 2016-11-28 10:07 | NUR ---
PT TRANSFERED TO ADOLESCENT COORDINATOR VIA BED, NAD NOTED.
--- NOTE | 2016-11-28 11:45 | NUR ---
RECEIVED PT BACK TO ROOM 2110, VITAL SIGNS STABLE, NO S/S OF BLEEDING OR HEMATOMA TO RIGHT GROIN, PULSE PALPABLE. ADMINISTERED MORNING MEDICATIONS. PT IN BED, DENIES ANY NEEDS AT THIS TIME.C ALL LIGHT IN REACH, NAD NOTED, WILL CONTINUE TO MONITOR.
--- NOTE | 2016-11-28 19:52 | NUR ---
ASSESSMENT COMPLETE, A&O. SITTING UP IN CHAIR AT BED SIDE. PT DENIES PAIN OR NEEDS, CL IN REACH, WILL CONT TO MONITOR.
--- NOTE | 2016-11-28 21:15 | NUR ---
HS MEDS GIVEN, HS SNACK PROVIDED AT PT REQUEST.
[2016-11-28 21:43] VITALS: BP 106/58
[2016-11-29 01:28] VITALS: BP 144/70
--- NOTE | 2016-11-29 02:33 | NUR ---
PT LAYING IN BED NO DISTRESS OBSERVED CALL LIGHT INR EACH SRX2 BED LOW AND LOCKED WILL MONITOR
[2016-11-29 05:22] LABS: BASOPHILS 0.6 % (0.0-2.0); EOSINOPHILS 12.1 % (0-7); HEMATOCRIT 34.3 % (36.0-48.0); HEMOGLOBIN 10.4 g/dL (12-16); IMMATURE GRANULOCYTES 0.3 % (0-5); LYMPHOCYTES 22.4 % (15-50); MCH 27.7 pg (26.0-34.0); MCHC 30.3 g/dL (31.0-37.0); MCV 91.2 fL (80.0-100.0); MEAN PLATELET VOLUME 10.1 fL (7.4-10.4); MONOCYTES 11.6 % (2-11); PLATELET COUNT 201 10x3/uL (130-400); RBC 3.76 10x6/uL (4.00-5.40); RDW 14.9 % (11.5-14.5)
[2016-11-29 05:45] VITALS: BP 123/64
[2016-11-29 05:46] LABS: ANION GAP 6.2 mmol/L (8-16); CALCIUM 9.7 mg/dL (8.5-10.1); CARBON DIOXIDE 39.3 mmol/L (21.0-32.0); CREATININE - SERUM 0.9 mg/dL (0.6-1.3); POTASSIUM - SERUM 4.5 mmol/L (3.5-5.1)
--- NOTE | 2016-11-29 07:01 | NUR ---
RECEIVED REPORT. ASSUMED CARE OF PATIENT. CALL LIGHT WITHIN REACH. SITTING TO CHAIR AT BEDSIDE. DENIES NEEDS. NO DISTRESS. RESP EVEN AND UNLABORED.
[2016-11-29 07:52] VITALS: BP 110/63
--- NOTE | 2016-11-29 08:30 | NUR ---
MEDICATIONS UNABLE TO BE SCANNED DUE TO SCANNER IN ROOM BROKE! PATIENT SITTING AT BEDSIDE IN CHAIR AT THIS TIME TALKING ON CELL PHONE. NO DISTRESS.
--- NOTE | 2016-11-29 08:52 | NUR ---
PREOP MEDICATIONS ADMINISTERED AT THIS TIME. AWAITING FOREST LANDSCAPE ECOLOGY PROFESSOR TO RETRIEVE PATIENT AT THIS TIME. CALL LIGHT WITHIN REACH. NO DISTRESS.
--- NOTE | 2016-11-29 09:30 | NUR ---
PATIENT TAKEN TO ROD FINISHER. NO DISTRESS UPON LEAVING UNIT VIA BED.
--- NOTE | 2016-11-29 11:00 | NUR ---
RECEIVED PATIENT BACK TO ROOM 2110. FEMSTOP TO LEFT FEMORAL. PERIPHERAL PULSES PATENT. PATIENT ALERT/ORIENTED. RESP EVEN AND UNLABORED. NO S/S BLEEDING FROM SITE. CALL LIGHT WITHIN REACH. IV FLUIDS INFUSING ORDERED. NO DISTRESS.
[2016-11-29 12:08] VITALS: BP 129/62
--- NOTE | 2016-11-29 12:13 | NUR ---
FEMSTOP RELEASED FROM LEFT FEMORAL. NO BLEEDING. NO S/S HEMATOMA. PERIPHERAL PULSES PRESENT. NO DISTRESS.
--- NOTE | 2016-11-29 12:19 | NUR ---
Nutrition follow-up: Pt now NPO for heart CATH PO intake has been ~75% average of meals Labs reviewed +BM RDN following.
--- NOTE | 2016-11-29 14:41 | NUR ---
Patient Name: DIANE DICK Admission Status: ER Accout number: [id number] Admission Date: 11-25-2016 : 1940 Admission Diagnosis: Attending: KAYLA Current LOS: 4 Anticipated DC Date: 11-29-2016 Planned Disposition: Home Primary Insurance: MEDICARE A & B Discharge Planning Comments: * Is the patient Alert and Oriented? Yes 0 * How many steps to enter\exit or inside your home? NONE 0 * PCP DR. LAW 0 * Pharmacy [facility] 0 * Preadmission Environment Home with Family 0 * ADLs Independent 0 * Equipment Cane Nebulizer Oxygen 0 * Other Equipment HOME AND PORTABLE OXYGEN [facility] - MEDICAL EQUIPMENT PROVIDER 0 * List name and contact numbers for known caregivers / representatives who currently or will assist patient after discharge: PRISCILA WRIGHT, SPOUSE, 0 * Community resources currently utilized None 0 * Please name any agencies selected above. NONE 0 * Can the patient safely return to the preadmission environment? Yes 0 * Has this patient been hospitalized within the prior 30 days at any hospital? No 0 CM MET WITH PT IN ROOM TO DISCUSS DISCHARGE PLANNING AND NEEDS. PT REPORTS LIVING AT HOME INDEPENDENTLY WITH HER SPOUSE. PT HAS A CAN,E NEBULIZER AND OXGYEN FROM [facility]. PT HAS NO OUTSIDE SERVICES ASSISTING IN THE HOME. CM DISCUSSED AVAILABILITY OF HOME HEALTH, REHAB SERVICES AND MEDICAL EQUIPMENT. PT DENIES DISCHARGE NEEDS, REPORTS HER SPOUSE WILL PICK HER UP FOR DISCHARGE HOME. IMPORTANT MESSAGE FROM MEDICARE PROVIDED AND EXPLAINED. Filler Spreader: Ritchie Rodriguez
[2016-11-29] MEDS ORDERED: PLAVIX75 MG PO (15:32)
[2016-11-29] MEDS ORDERED: PRAVACHOL20 MG PO (15:33)
[2016-11-29] MEDS ORDERED: ASPIRIN81 MG PO (15:33)
--- NOTE | 2016-11-29 15:49 | NUR ---
DISCHARGE ON HOLD UNTIL TOMORROW PER IN ORDER TO EVALUATE RENAL FUNCTION.
[2016-11-29 15:55] VITALS: BP 104/58
--- NOTE | 2016-11-29 17:36 | NUR ---
SITTING IN CHAIR AT BEDSIDE. NO DISTRESS.
--- NOTE | 2016-11-29 17:45 | NUR ---
20 GAUGE IV SITE TO RIGHT AC LEAKING. IV REMOVED. CATHETER TIP INTACT. NO BLEEDING FROM SITE. 2X2 GAUZE APPLIED AND SECURED WITH TAPE. TOLERATED REMOVAL OF IV WELL.
--- NOTE | 2016-11-29 18:15 | NUR ---
22 GAUGE IV PLACED TO LEFT AC AREA BY SHAWNEE RODRIGUEZ X 1 STICK. GOOD BLOOD RETURN, EASY FLUSH. TAPED, DATED AND SECURED. TOELRATED IV INSERTION WELL.
[2016-11-29 21:06] VITALS: BP 134/57
[2016-11-30 00:43] VITALS: BP 137/65
--- NOTE | 2016-11-30 01:58 | NUR ---
PT RESTING SOUNDLY WITHOUT C/O OR DISTRESS NOTED. CALL LIGHT WITHIN REACH. WILL CONT TO MONITOR.
[2016-11-30 04:58] LABS: BASOPHILS 0.6 % (0.0-2.0); EOSINOPHILS 13.4 % (0-7); HEMATOCRIT 35.9 % (36.0-48.0); HEMOGLOBIN 10.6 g/dL (12-16); IMMATURE GRANULOCYTES 0.4 % (0-5); LYMPHOCYTES 24.7 % (15-50); MCH 27.7 pg (26.0-34.0); MCHC 29.5 g/dL (31.0-37.0); MEAN PLATELET VOLUME 9.9 fL (7.4-10.4); MONOCYTES 11.6 % (2-11); NEUTROPHILS 49.3 % (40-80); PLATELET COUNT 204 10x3/uL (130-400); RBC 3.83 10x6/uL (4.00-5.40); RDW 14.9 % (11.5-14.5); WBC 7.2 10x3/uL (4.8-10.8)
[2016-11-30 05:18] LABS: MCV 93.7 fL (80.0-100.0)
[2016-11-30 05:21] LABS: CALC OSMOLALITY 287 mosm/kg (275-300); CALCIUM 10.2 mg/dL (8.5-10.1); CARBON DIOXIDE 39.5 mmol/L (21.0-32.0); CHLORIDE - SERUM 103 mmol/L (98-107); CREATININE - SERUM 0.7 mg/dL (0.6-1.3); GLUCOSE 103 mg/dL (74-106); SODIUM 143 mmol/L (136-145); UREA NITROGEN 20 mg/dL (7-18); eGFR NON AFRICAN AMERICAN 86 mL/min (90-120)
[2016-11-30 05:26] VITALS: BP 137/62
[2016-11-30 08:00] VITALS: BP 112/55
--- NOTE | 2016-12-02 16:40 | HP ---
PATIENT: DIANE DICK MEDICAL RECORD: [id number] ACCOUNT: [id number] LOCATION:[facility].2111 : 38 ADMISSION DATE: 11/25/16 HISTORY AND PHYSICAL EXAMINATION ADMITTING DIAGNOSES: 1. Congestive heart failure. 2. Pulmonary edema. 3. Shortness of breath, dyspnea on exertion. 4. Coronary artery disease. 5. Non-Q-wave myocardial infarction. 6. Hypertension. 7. Chronic obstructive pulmonary disease. HISTORY OF PRESENT ILLNESS: Mrs. Dick presents with shortness of breath, dyspnea on exertion. Chest x-ray is compatible with CHF, pulmonary edema. She gives a history of 4 years ago undergoing cardiac catheterization revealing 2-vessel coronary artery disease, was sent to Dr. Barlow for bypass, but she could not pass the pulmonary function studies. She did not have bypass and has not been revascularized. Her EKG is with no acute ST-T abnormalities. Shortness of breath and dyspnea on exertion has been worsening over the past few weeks. PHYSICAL EXAMINATION: GENERAL APPEARANCE: Well-nourished, well-developed, appears stated age. Level of distress, comfortable. PSYCHIATRIC: Mental status, alert, normal affect. Orientation, oriented to time, place and person. EYES: Lids and conjunctiva, noninjected. No discharge, no pallor. ENT: Lips, teeth, gums, normal dentition. Oropharynx, no cyanosis, no pallor. NECK: Carotid arteries, bilateral normal upstroke, no bruits, no thrills. JUGULAR VEINS: No jugular venous pressure or distention. CERVICAL LYMPH NODES: Nontender, nonenlarged. THYROID: Not enlarged. Nontender. No nodules. LUNGS: Bibasilar crackles compatible with pulmonary edema. CHEST: Normal curvature. No thoracic deformity. No chest wall tenderness. Percussion, resonant. Auscultation, clear. No wheezes, no rales, no rhonchi. CARDIOVASCULAR: Precordial exam, nondisplaced. No heaves or pericardial thrills. Rate and rhythm, regular. Heart sounds, normal S1, normal S2. No S3, no gallop, no rub. Systolic murmur, not heard. Diastolic murmur, not heard. EXTREMITIES: No cyanosis, no edema. Peripheral pulses, full and equal in all extremities, except as noted. No bruits appreciated. ABDOMEN: Soft, nondistended. Normal aorta. No bruit. Nontender. No masses. Liver, nontender, no hepatomegaly. Spleen, nontender, no splenomegaly. MUSCULOSKELETAL: No joint tenderness. No joint swelling. No erythema. NEUROLOGICAL: Normal gait, normal strength, normal tone. SKIN: Warm and dry. REVIEW OF SYSTEMS: The patient reports easy bruising but reports no swollen glands. The patient reports no fever, no night sweats, no significant weight gain, no significant weight loss. No significant exercise tolerance. The patient reports no dry eyes, no irritation, no vision change. Patient reports no difficulty hearing and no ear pain. Patient reports no frequent nose bleeds or nose and sinus problems. Patient reports on arm pain on exertion. No shortness of breath while lying down. No history of heart murmur. Patient HISTORY AND PHYSICAL [id number] DIANE DICK reports no cough, no wheezing or coughing up blood. Patient reports no abdominal pain, no vomiting. Normal appetite. No diarrhea and not vomiting blood. No nausea and no constipation. Patient reports no incontinence. No difficulty urinating. No hematuria. No increased frequency. Patient reports no muscle aches. No weakness, no arthralgias, no back pain. No swelling of the extremities. Patient reports no abnormal mole, no jaundice, no rashes. Reports no loss of consciousness. No weakness and no numbness. No seizures, dizziness, or headaches. The patient reports no depression, no sleep disturbance, feeling safe in a relationship and no alcohol abuse. Patient reports on fatigue. Reports no runny nose or sinus pressure. No itching, no hives, and no frequent sneezing. OVERALL IMPRESSION: 1. Congestive heart failure. We will use IV Lasix. Get an echocardiogram to see her current ejection fraction. Hopefully, the congestive heart failure will clear rapidly. 2. Ischemic heart disease. Most likely etiology of the congestive heart failure is ischemia. We will plan for cardiac catheterization and revascularization when she is more stable from a respiratory standpoint. TRANSINT:[id number] Voice Confirmation ID: [id number] DOCUMENT ID: [id number] JULIETTE RIVERA MD at 1640 CC: [id number] DICTATION DATE: 11/25/16 1233 DRY SAND MOLDER: 11/25/16 1255 DIS IN 11/30/16 [facility] [address] [place] [address]
--- NOTE | 2016-12-02 16:40 | OP ---
PATIENT NAME: DIANE DICK MEDICAL RECORD: [id number] :38 LOCATION:D.M2 D.2111 ADMISSION DATE:11/25/16 SURGEON: JULIETTE RIVERA MD DATE OF OPERATION: 11/28/2016 PROCEDURES: 1. PTCA stent LAD. 2. Intravascular ultrasound of the left circumflex and LAD. 3. Left heart catheterization. 4. Selective coronary angiography. 5. Left ventriculogram. INDICATION: Angina and coronary artery disease. PROCEDURE IN DETAIL: After informed consent was obtained and after detailed explanation of risks, benefits as well as alternative therapies, the patient elected to proceed with angiogram and angioplasty. The right femoral area was prepped and draped in normal sterile fashion. The right femoral artery was cannulated via modified Seldinger technique with the placement of 6-Romansh sheath. All catheters exchanged through this sheath. FINDINGS: The left ventriculogram was performed in standard 30-degree NIETO view, reveals good cardiac wall motion throughout all segments. Overall ejection fraction estimated at 60%. SELECTIVE CORONARY ANGIOGRAPHY: 1. Left main is with no significant angiographic disease. 2. Left anterior descending has a 72% stenosis in the mid vessel confirmed by intravascular ultrasound. 3. The left circumflex has a questionable area of stenosis proximally; however, intravascular ultrasound revealed that this was only a ____. There was no significant disease. 4. The right coronary has greater than 70% stenosis with pressure damping at the ostium. PTCA STENT OF THE LAD: The stent used was a 3.0 x 22 mm Resolute. Result was 0% residual stenosis. OVERALL IMPRESSION: Successful percutaneous transluminal coronary angioplasty stent of the left anterior descending going from 72% initial stenosis confirmed by intravascular ultrasound to 0% residual stenosis. PLAN: For PTCA stent of the RCA in the near future. TRANSINT:[id number] Voice Confirmation ID: [id number] DOCUMENT ID: [id number] JULIETTE RIVERA MD at [facility] CC: [id number] DICTATION DATE: 11/28/16 1117 HUMAN CAPITAL MANAGER: 11/28/16 1139 DIS IN 11/30/16 [place] [address]
--- NOTE | 2016-12-02 16:40 | EC ---
PATIENT:DIANE DICK DATE OF SERVICE: 11/25/16 SEX: F MEDICAL RECORD: [id number] DATE OF : 38 LOCATION:D. D.211 AGE OF PATIENT: 75 ADMISSION DATE: 11/25/16 REFERRING PHYSICIAN: INTERPRETING PHYSICIAN: JULIETTE KARIMI MD ECHOCARDIOGRAM REPORT ECHO CHARGES 4 ECHO COMPLETE CLINICAL DIAGNOSIS: CHF ECHOCARDIOGRAPHIC MEASUREMENTS (adult normal given) AC root (d.<3.7cm) 2.3 LV Septum d (<1.2 cm> 1.2 Valve Excursion 1.3 LV Septum (systole) 1.7 Left Atria (s.<4.0cm> 2.0 LVPW d(<1.2cm) 1.2 RV (d.<2.3cm) 2.2 LVPW (sytole) 1.6 LV diastole(<5.6CM) 3.1 MV E-F(>70mm/sec) LV systole 1.6 LVOT Diameter 1.7 MV exc.(>10mm) Est.ejection fraction (50-75%) Pericardial Effusion N DOPPLER: LVIT A 67.0 E 84.0 LA RVSP 22.3 LVOT 89.0 AOP1/2T Asc. Ao 152 RVOT 96.0 RA PA 90.0 AV Gradient Peak 9.2 AV Mean 3.4 AV Area 1.4 MV Gradient Peak 3.3 MV Mean 1.5 MV Area COMMENTS: Wetland Scientist: [place] ROBERTOE Greige Goods Marker:1 Dr. Karimi TAPE# PACS DATE OF SERVICE: 11/25/2016 Echocardiogram FINDINGS: 1. Left ventricular chamber size is within normal limits. Left ventricular systolic function is normal. Overall ejection fraction is estimated at 55%. 2. Left atrium, right atrium, and right ventricular chamber sizes are within normal limits. 3. Valvular structures have normal structure and motion. ECHOCARDIOGRAM REPORT [id number] DIANE DICK 4. Doppler interrogation reveals no significant valvular insufficiency or stenosis and pulmonary systolic pressure is estimated 22 mmHg. 5. No evidence of pericardial effusion or left ventricular thrombus. TRANSINT:[id number] Voice Confirmation ID: [id number] DOCUMENT ID: [id number] JULIETTE KARIMI MD at [employer] CC: [id number] DICTATION DATE: 11/25/16 1611 CRITICAL CARE UNIT NURSE: 11/25/162201 DIS IN 11/30/16 [facility] [address] [facility] [place] [address]
--- NOTE | 2016-12-02 16:40 | DS ---
PATIENT:DIANE DICK :38 MEDICAL RECORD: [id number] DISCHARGE SUMMARY ADMISSION DATE: 11/25/16 DISCHARGE DATE: 11/30/16 DIAGNOSES: 1. Angina. 2. Coronary artery disease. 3. Non-Q-wave myocardial infarction. 4. Percutaneous transluminal coronary angioplasty stent, right coronary artery and left anterior descending this admission. 5. Shortness of breath, pulmonary edema. HOSPITAL COURSE: Mrs. Dick presents with unstable anginal symptomatology, found to have non-Q-wave myocardial infarction, underwent cardiac catheterization revealing disease of the RCA and LAD, underwent successful PTCA stent of both territories and was discharged home with the addition of aspirin, Plavix, pravastatin to her medical regimen. She will follow up with [facility] in 1 month. TRANSINT:[id number] Voice Confirmation ID: [id number] DOCUMENT ID: [id number] JULIETTE RIVERA MD at 1640 CC: [id number] DICTATION DATE: 11/29/16 1055 TEST FACILITY ENGINEER: 11/29/16 1108 DIS IN 11/30/16 [address] [place] [address]
--- NOTE | 2016-12-02 16:40 | OP ---
PATIENT NAME: DIANE DICK MEDICAL RECORD: [id number] :38 LOCATION:D.M2 D.2111 ADMISSION DATE:11/25/16 SURGEON: JULIETTE RIVERA MD DATE OF OPERATION: 11/29/2016 PROCEDURES: 1. PTCA stent RCA. 2. Selective coronary angiography. INDICATION: Angina and coronary artery disease. PROCEDURE IN DETAIL: After informed consent was obtained and after a detailed explanation of the risks, benefits, as well as alternative therapies, the patient elected to proceed with angiogram and angioplasty. The left femoral area was prepped and draped in normal sterile fashion. Left femoral artery was cannulated via modified Seldinger technique with placement of 6-Albanian sheath. All catheters exchanged through this sheath. FINDINGS: The right coronary ostium is greater than 80% stenosis addressed with a 3.5 x 9-mm Resolute stent. Result was 0% residual stenosis. OVERALL IMPRESSION: Successful percutaneous transluminal coronary angioplasty stent of the RCA ostium going from 80% initial stenosis to 0% residual. TRANSINT:[id number] Voice Confirmation ID: [id number] DOCUMENT ID: [id number] JULIETTE RIVERA MD at 1640 CC: [id number] DICTATION DATE: 11/29/16 1056 ELECTRIC CUTTER OPERATOR: 11/29/16 1154 DIS IN 11/30/[address] [address]
== END 2016-11-30 11:28 | disposition home or self-care (01) | DRG 246 ==
LOC: D.ER 09:30 → D.M2 12:36
PROVIDERS: Emergency Medicine; Family Medicine; ADMIT Internal Medicine Interventional Cardiology
PROC: B241ZZ3 Ultrasonography of Multiple Coronary Arteries, Intravascular (ICD-10-PCS; 2016-11-28)
PROC: 4A023N7 Measurement of Cardiac Sampling and Pressure, Left Heart, Percutaneous Approach (ICD-10-PCS; 2016-11-28)
PROC: B2111ZZ Fluoroscopy of Multiple Coronary Arteries using Low Osmolar Contrast (ICD-10-PCS; 2016-11-28)
PROC: B2151ZZ Fluoroscopy of Left Heart using Low Osmolar Contrast (ICD-10-PCS; 2016-11-28)
PROC: 027034Z Dilation of Coronary Artery, One Artery with Drug-eluting Intraluminal Device, Percutaneous Approach (ICD-10-PCS; principal; 2016-11-28 08:00)
PROC: 027034Z Dilation of Coronary Artery, One Artery with Drug-eluting Intraluminal Device, Percutaneous Approach (ICD-10-PCS; 2016-11-29)
DX: I21.4 Non-ST elevation (NSTEMI) myocardial infarction (principal); J18.9 Pneumonia, unspecified organism; J44.1 Chronic obstructive pulmonary disease with (acute) exacerbation; I25.119 Atherosclerotic heart disease of native coronary artery with unspecified angina pectoris; Z79.01 Long term (current) use of anticoagulants; I10 Essential (primary) hypertension

== ENCOUNTER 2017-01-01 22:16 | Inpatient (IN) | payer MEDICARE, OTHER ==
[~2017-01-01] VITALS: Ht 154.9 cm; Wt 77.8 kg
[~2017-01-01 22:16] MED LIST changes: +ASPIRIN81 MG PO; +PLAVIX75 MG PO; +PRAVACHOL20 MG PO
[2017-01-01 23:49] LABS: BASOPHILS 0.2 % (0.0-2.0); HEMATOCRIT 36.1 % (36.0-48.0); IMMATURE GRANULOCYTES 0.2 % (0-5); LYMPHOCYTES 6.2 % (15-50); MCH 27.8 pg (26.0-34.0); MCHC 30.5 g/dL (31.0-37.0); MCV 91.2 fL (80.0-100.0); MEAN PLATELET VOLUME 9.7 fL (7.4-10.4); MONOCYTES 8.2 % (2-11); NEUTROPHILS 84.2 % (40-80); PLATELET COUNT 202 10x3/uL (130-400); RBC 3.96 10x6/uL (4.00-5.40); RDW 15.9 % (11.5-14.5); WBC 12.5 10x3/uL (4.8-10.8)
[2017-01-02 00:02] LABS: APPEARANCE HAZY (CLEAR); COLOR YELLOW (YELLOW); GLUCOSE NEGATIVE (NEGATIVE); LEUKOCYTE ESTERASE 2+ (NEGATIVE); NITRITE POSITIVE (NEGATIVE); PROTEIN 1+ mg/dL (NEGATIVE); SPECIFIC GRAVITY 1.015 (1.005-1.020)
[2017-01-02 00:03] LABS: BILIRUBIN NEGATIVE (NEGATIVE); KETONE NEGATIVE (NEGATIVE); UROBILINOGEN NORMAL (NORMAL)
[2017-01-02 00:04] LABS: BACTERIA MANY /hpf (NONE SEEN); EPITHELIAL CELLS NSEEN /hpf (0-5); RED CELLS - URINE 0-5 /hpf (0-5)
[2017-01-02 00:15] LABS: ANION GAP 9.7 mmol/L (8-16); BILIRUBIN - TOTAL 0.32 mg/dL (0.2-1.3); CALCIUM 8.8 mg/dL (8.5-10.1); CARBON DIOXIDE 35.2 mmol/L (21.0-32.0); CREATININE - SERUM 1.2 mg/dL (0.6-1.3); POTASSIUM - SERUM 3.9 mmol/L (3.5-5.1); PROTEIN - SERUM 6.6 g/dL (6.4-8.2)
--- NOTE | 2017-01-02 02:05 | NUR ---
RECIEVED TO ROOM 2136 FORM ER VIA STRETCHER. PT A&O, VITALS STABLE. O2 AT 2 LITER VIA NC. IV TO LET AC WITH NS INFUSING AT 100 CC/HR, SITE CLEAN AND DRY. PT DENIES PAIN OT NEEDS, AT THIS TIME, BED LOW, CL IN REACH.
[2017-01-02] MEDS ORDERED: PROTONIX20 MG PO (02:17)
[2017-01-02] MEDS ORDERED: SINGULAIR10 MG PO (02:18)
[2017-01-02 02:34] VITALS: BP 101/50; BMI 32.3
--- NOTE | 2017-01-02 07:41 | NUR ---
AM ROUNDING- PT LAYING IN BED ON BACK WITH EYES OPEN RESTING. CURRENTLY REQUESTING ANOTHER BLANKET AND SOME TISSUES. PT IS ALERT AND ORIENTED. IV SEEN TO LEFT UPPER ARM WITH NS RUNNING AT 100CC. ON 02 AT 2L VIA NC. PER REPORT PT IS UP AD NOEL WITH ASSIST. ANOTHER BLANKET AND TISSUES GIVEN TO PT. WILL CONTINUE TO MONITOR.
[2017-01-02 07:43] VITALS: BP 131/54
--- NOTE | 2017-01-02 09:22 | NUR ---
SCD'S ON BILATERAL LE.
[2017-01-02 12:07] VITALS: BP 118/63
[2017-01-02 14:00] VITALS: Ht 154.9 cm; Wt 77.8 kg
[2017-01-02 16:15] VITALS: BP 97/44
--- NOTE | 2017-01-02 16:39 | NUR ---
Patient Name: DIANE DICK Admission Status: ER Accout number: [id number] Admission Date: 01-02-2017 : 1940 Admission Diagnosis: Attending: FLIP Current LOS: 1 Anticipated DC Date: Planned Disposition: Home Primary Insurance: MEDICARE A & B Discharge Planning Comments: * Is the patient Alert and Oriented? Yes 0 * How many steps to enter\exit or inside your home? NONE 0 * PCP DR. LAW 0 * Pharmacy [facility] 0 * Preadmission Environment Home with Family 0 * ADLs Independent 0 * Equipment Cane Nebulizer Oxygen 0 * Other Equipment HOME AND PORTABLE OXYGEN [facility] 0 * List name and contact numbers for known caregivers / representatives who currently or will assist patient after discharge: PRISCILA WRIGHT, SPOUSE, 0 * Community resources currently utilized None 0 * Please name any agencies selected above. NONE 0 * Additional services required to return to the preadmission environment? No 0 * Can the patient safely return to the preadmission environment? Yes 0 * Has this patient been hospitalized within the prior 30 days at any hospital? Yes 0 CM MET WITH PT IN ROOM TO DISCUSS DISCHARGE PLANNING AND NEEDS. PT REPORTS LIVING AT HOME INDEPENDENTLY WITH HER SPOUSE. PT HAS HOME AND PORTABLE OXYGEN, NEBULIZER AND CANE FROM [facility]. PT HAS NO OUTSIDE SERVICES ASSISTING IN THE HOME OTHER THAN A PRIVATE PAY SCULLION CHIEF. CM DISCUSSED AVAILABILITY OF HOME HEALTH, REHAB SERVICES AND MEDICAL EQUIPMENT. PT DENIES DISCHARGE NEEDS, REPORTS HER SPOUSE WILL PICK HER UP FOR DISCHARGE HOME. Retail Pharmacy Technician: Ritchie Rodriguez
--- NOTE | 2017-01-02 18:54 | NUR ---
PT LAYING IN BED ON BACK WITH EYES CLOSED RESTING. NO NEED AT CURRENT TIME. WILL CONTINUE TO MONITOR.
[2017-01-02 20:00] VITALS: BP 157/70
[2017-01-03] VITALS (18 sets, daily range): BP systolic 98–144; BP diastolic 48–76
--- NOTE | 2017-01-03 01:28 | NUR ---
NURSE ROUNDS 19:30 - PT AWAKE, ALERT, ORIENTED, DENIES ANY NEEDS. PT STATES SHE USES A CANE AT HOME, AND HER IS TO BRING IT TOMORROW. I HAVE ENCOURAGED PT TO ALWAYS CALL BEFORE GETTING OUT OF BED, IN WHICH SHE VERBALLY AGREED TO. WILL CONTINUE TO MONITOR CLOSELY.
[2017-01-03 05:10] LABS: BASOPHILS 0.3 % (0.0-2.0); EOSINOPHILS 1.8 % (0-7); HEMATOCRIT 38.7 % (36.0-48.0); HEMOGLOBIN 11.8 g/dL (12-16); IMMATURE GRANULOCYTES 0.3 % (0-5); MCHC 30.5 g/dL (31.0-37.0); MCV 91.9 fL (80.0-100.0); MEAN PLATELET VOLUME 10.1 fL (7.4-10.4); MONOCYTES 11.1 % (2-11); NEUTROPHILS 70.5 % (40-80); PLATELET COUNT 204 10x3/uL (130-400); RBC 4.21 10x6/uL (4.00-5.40); WBC 12.7 10x3/uL (4.8-10.8)
--- NOTE | 2017-01-03 05:35 | NUR ---
PT HAS BEEN UP MULTIPLE TIMES VOIDING R/T RECEIVING HER LASIX @ 2100. WILL ASK TO CHANGE TO EARLIER TIME, ALSO SHE IS C/O OF INCREASED NAUSEA, INCREASED SOB, TACHYPNEA, AND AN OVERALL "SICK" FEELING. WILL CHECK LABS AND NOTIFY PHYSICIAN. I HAVE STARTED NS @ 75 TEMPORARILY FOR POSSIBLE DEHYDRATION UNTIL FURTHER ORDERS. CONTINUE TO MONITOR CLOSELY. PT HAS CALL LIGHT AND EMESIS BAG IN HAND.
[2017-01-03 06:03] LABS: ANION GAP 10.2 mmol/L (8-16); CALCIUM 9.4 mg/dL (8.5-10.1); CARBON DIOXIDE 32.8 mmol/L (21.0-32.0); CREATININE - SERUM 0.9 mg/dL (0.6-1.3)
--- NOTE | 2017-01-03 06:11 | NUR ---
EKG DONE VIA RESPIRATORY TX, PT STILL TACHYPNEIC, O2 88% ON 3LPM, PT STILL SEVERELY NAUSEATED. I HAVE PLACED A COLD RAG TO PTS FOREHEAD, AND HAVE TURNED PTS AIR ON IN THE ROOM FOR CIRCULATION. PT FEELS WARM TO TOUCH, PALE, BUT NO FEVER AT THIS TIME. PT IS CURRENTLY RECEIVING BREATHING TX AND STATES SHE IS FEELING MINIMALLY BETTER. WILL CONTINUE TO MONITOR CLOSELY.
--- NOTE | 2017-01-03 06:47 | HP ---
PATIENT: DIANE DICK MEDICAL RECORD: [id number] ACCOUNT: [id number] LOCATION:[address] : 38 ADMISSION DATE: 01/02/17 HISTORY AND PHYSICAL EXAMINATION DATE OF ADMISSION: 01/02/2017 CHIEF COMPLAINT: Chills, weakness. HISTORY OF PRESENT ILLNESS: The patient is a 76-year-old female, who states she was in her normal state of health. She attended nondenominational yesterday. Upon returning home, the patient states she did fix lunch, had no problems, but later on in the afternoon, began to have chills and began to experience rigors. The patient presented to the Emergency Room where she was found to be hypotensive and also had urinary tract infection. PAST MEDICAL HISTORY: Significant that she has had paraganglioma. She has had knee replacement, also had left hip pain. She has had bilateral knee replacements, appendectomy, cholecystectomy, tubal ligation, anterior cervical fusion, vein stripping, history of anemia, hypertension. She has recently had cardiac stenting. FAMILY HISTORY: Father had myocardial infarction. Mother of complication of childbirth. One sister with malignant breast cancer. ALLERGIES: CODEINE. MEDICATIONS: Include: Ventolin 2 puffs q.4 hours p.r.n. shortness of breath, aspirin 81 mg once a day, carvedilol 6.25 b.i.d., Plavix 75 mg once a day, Lasix 40 mg b.i.d., isosorbide, mononitrate ER 30 mg 1 p.o. q. day, Singulair 10 mg once a day, Protonix 40 mg once a day, KCl 10 mEq 1 b.i.d., pravastatin 20 mg once a day, prednisone 5 mg a day, Spiriva HandiHaler 18 mcg 1 puff a day, ____ 5 mg 1 p.o. q.h.s. p.r.n. REVIEW OF SYSTEMS: CONSTITUTIONAL: She denies any headaches, seizure or syncope. She denies change in visual or auditory acuity. PULMONARY: She denies any shortness of breath, cough, congestion, history of TB, asthma or bronchitis. CARDIOVASCULAR: She had no chest pain, palpitation, PND or orthopnea. GASTROINTESTINAL: No chronic nausea, vomiting, melena or hematochezia. GENITOURINARY: No urgency, frequency, or dysuria. PHYSICAL EXAMINATION: VITAL SIGNS: The patient's initial blood pressure was 101/50, her pulse 87, respirations 17, temperature is 97.9. HEENT: Head is normocephalic. No lesions. Ears: TMs clear. Eyes: Pupils equal, round and reactive to light. Extraocular movements are intact. Nasal cavity, oral cavity and oropharynx clear. NECK: Supple. There is no adenopathy. HEART: Has regular rhythm. No murmurs, gallops or rubs. LUNGS: Clear. ABDOMEN: Soft, bowel sounds positive. No organomegaly. LABORATORY DATA: The patient had a white count of 12.5, hemoglobin 11.0, HISTORY AND PHYSICAL [id number] DIANE DICK hematocrit is 36.1, her platelets are 202. She had a sodium of 141, potassium 3.9, chloride 100, CO2 is 35, BUN is 25, creatinine 1.2, glucose slightly elevated at 201. Her urinalysis today showed 10-25 wbc's per high power field. ASSESSMENT: Probable early sepsis with urinary tract infection, history of recent cardiac stenting, history of paraganglioma, history of congestive heart failure, hypertension. PLAN: The patient is admitted. She will be placed on Rocephin 1 gram q.24 hours. We will continue all her current medications, vigorous IV hydration. Urine cultures and blood cultures will be obtained. TRANSINT:[id number] Voice Confirmation ID: [id number] DOCUMENT ID: [id number] JAMIL LAW MD at 0647 CC: [id number] DICTATION DATE: 01/02/17712 FARROWING MANAGER: 01/02/17 0839 ADM IN [id number] [place] [address]
--- NOTE | 2017-01-03 08:05 | NUR ---
0755- CALLED INTO PTS ROOM FOR PTS 02 SAT BEING AT 82%. CALLED RESPIRATORY, LING IS NOW ON UNIT. LING STATED TO ORDER ABGS. PT IS ON 02 AT 3L VIA NC. LING WITH RESPIRATORY IS IN ROOM NOW. WILL CONTINUE TO MONITOR.
--- NOTE | 2017-01-03 08:19 | NUR ---
CALLED DR. LAW OFFICE TO INFORM HIM OF PTS BLOOD GASES AND WHAT PTS O2 SAT IS. SPOKE WITH DR. LAW, AND NOTIFIED HIM OF PTS ABGS AND CURRENT [address] LAW STATED TO GET DR. NEWBERRY OR DR. SPENCE INVOLVED AND THAT A BIPAP WOULD BE FINE FOR PT. WILL CONTINUE TO MONITOR AND DO ORDERED.
--- NOTE | 2017-01-03 08:53 | NUR ---
PATIENT VERY TACHYPNIC( RESP 38) O2 SAT IS 84. HANNAH PERKINS WITH CARDIOLOGY HERE AND EVALUATED PATIENT. DR. DOUGHERTY CONSULTED. TRANSF[facility] TO [facility]. HOUSE SUP CONTACTED FOR ROOM.
--- NOTE | 2017-01-03 09:05 | NUR ---
CALLED REPORT TO ICU AND SPOKE WITH YEYO SKINNER. GAVE REPORT AND INFORMED HER OF PTS STATUS AND WHAT HER O2 SAT WAS AND DID INFORM HER THAT DR. LAW IS AWARE AND DR. SPENCE WAS CALLED AND NOTIFIED WELL. WILL CONTINUE TO MONITOR AND TAKE PT TO ICU.
--- NOTE | 2017-01-03 09:24 | NUR ---
KAYCEE FROM ICU IS ON UNIT TRANSFERRING PT VIA BED TO ICU. PT IS ON PORTABLE 02 AT 3L. ICU NURSE KAYCEE INSERTED CRAWFORD CATHETER INTO PT BEFORE BEING TRANSFERRED. 925- PT TRANSFERRED PT TO ICU VIA BED BY ICU NURSE KAYCEE. 929- CALLED DR. LAW OFFICE TO INFORM HIM OF PT BEING TRANSFERRED TO ICU SPOKE WITH DR. LAW AND INFORMED HIM OF SITUATION AND PT BEING TRANSFERED PER KERVIN PERKINS APN. DR. LAW STATED THAT WAS FINE.
--- NOTE | 2017-01-03 09:52 | NUR ---
PATIENT IN ROOM UPON THIS NURSES ARRIVAL. IN SEMI FOWLERS POSITION, OXYGEN AT 2L N/C IN USE. PATIENT IS VISABLY SHORT OF BREATH WITH ACCESSORY MUSCLES IN USE. ASSESSMENT COMPLETED. CALL LIGHT IN REACH, SIDE RAILS X3, DENIES NEEDS AT THIS TIME.
--- NOTE | 2017-01-03 10:03 | NUR ---
PATIENTS OXYGEN INCREASED TO 3L N/C TO MAINTAIN SATS >92%.
--- NOTE | 2017-01-03 10:23 | NUR ---
PATIENT BACK ON 2L N/C AND SATS ARE HOLDING 94-95%. YEYO TAYLOR DISCUSSED WITH ME THAT THE PATIENT WAS COMING TO THE UNIT FOR BIPAP. THIS WAS DISCUSSED WITH RESPIRATORY, ABG'S LOOKED AT. WILL DISCUSS WITH DR SPENCE, BUT AT THIS TIME IT DOESN'T LOOK IF SHE NEEDS THE BIPAP.
[2017-01-03 10:34] LABS: APPEARANCE CLEAR (CLEAR); BACTERIA FEW /hpf (NONE SEEN); BILIRUBIN NEGATIVE (NEGATIVE); COLOR COLORLESS (YELLOW); EPITHELIAL CELLS RARE /hpf (0-5); GLUCOSE NEGATIVE (NEGATIVE); KETONE NEGATIVE (NEGATIVE); LEUKOCYTE ESTERASE NEGATIVE (NEGATIVE); NITRITE NEGATIVE (NEGATIVE); PROTEIN NEGATIVE (NEGATIVE); RED CELLS - URINE OCC /hpf (0-5); UROBILINOGEN NORMAL (NORMAL)
--- NOTE | 2017-01-03 11:39 | NUR ---
SPOKE WITH PATIENTS DAUGHTER EMIL ON THE PATIENTS CELL PHONE PER HER REQUEST. UPDATE WAS GIVEN AND ALL QUESTIONS ANSWERED TO THE BEST OF MY KNOWLEDGE AT THIS TIME. SHE STATED SHE WOULD CALL BACK AND CHECK ON HER LATER. SHE HAS THE NUMBER FOR THE NURSES STATION AND THE PATIENTS PASSWORD.
--- NOTE | 2017-01-03 12:17 | NUR ---
PATIENTS SISTER FROM [place] IS HERE IN ROOM. UPDATE GIVEN. ALL QUESTIONS ANSWERED.
--- NOTE | 2017-01-03 13:33 | NUR ---
PATIENTS SPOUSE HERE, INSISTANT THAT HE LEFT HIS CELL PHONE IN THE PATIENTS ROOM. ROOM WAS SEARCHED BY TWO NURSES AND THE PATIENT CALLED THE CELL PHONE. IT WAS NOT HEARD. HE INSISTED THAT HE WAS COMING BACK INTO THE ICU AND WAS NOT TAKING NO FOR AN ANSWER. HE CAME INTO THE ICU AND SEARCHED THE PATIENTS ROOM HIMSELF AND THEN WAS ESCORTED BACK OUT OF THE ICU.
--- NOTE | 2017-01-03 19:30 | NUR ---
REPORT RECIEVED. ASSESSMENT COMPLETE PER FLOW SHEET. VSS. REFER FOR FINDINGS. PT GIVEN YESI PER REQUEST. ATE 100%. REPOSITIONED ON R SIDE. DENIES FURTHER NEEDS. WILL CONTINUE TO MONITOR.
--- NOTE | 2017-01-03 21:19 | NUR ---
NO VISITORS AT THIS TIME. PT DENIES NEEDS. WILL CONTINUE TO MONITOR.
--- NOTE | 2017-01-03 23:38 | NUR ---
REASSESSMENT COMPLETE PER FLOW SHEET. VSS. NO NEW CHANGES. PT SLEEPING COMFORTABLY. WILL CONTINUE TO MONITOR.
[2017-01-04] VITALS (12 sets, daily range): BP systolic 97–153; BP diastolic 51–63
--- NOTE | 2017-01-04 01:21 | NUR ---
NO NEW FINDINGS AT THIS TIME. VSS. DENIES NEEDS. WILL CONTINUE TO MONITOR.
--- NOTE | 2017-01-04 03:31 | NUR ---
REASSESMENT COMPLETE PER FLOW SHEET.VSS. NO NEW CHANGES. WILL CNOTINUE TO MONITOR.
[2017-01-04 04:30] LABS: BASOPHILS 0 % (0.0-2.0); EOSINOPHILS 0 % (0-7); HEMATOCRIT 35.4 % (36.0-48.0); HEMOGLOBIN 10.9 g/dL (12-16); IMMATURE GRANULOCYTES 0.3 % (0-5); MCH 27.9 pg (26.0-34.0); MCHC 30.8 g/dL (31.0-37.0); MCV 90.5 fL (80.0-100.0); MEAN PLATELET VOLUME 9.9 fL (7.4-10.4); MONOCYTES 3.6 % (2-11); NEUTROPHILS 86.1 % (40-80); PLATELET COUNT 199 10x3/uL (130-400); RBC 3.91 10x6/uL (4.00-5.40); RDW 15.6 % (11.5-14.5)
[2017-01-04 04:51] LABS: ANION GAP 6.9 mmol/L (8-16); CALCIUM 9.5 mg/dL (8.5-10.1); CARBON DIOXIDE 37.1 mmol/L (21.0-32.0); CREATININE - SERUM 0.8 mg/dL (0.6-1.3); MAGNESIUM - SERUM 1.9 mg/dL (1.8-2.4)
--- NOTE | 2017-01-04 06:50 | NUR ---
here rounding on patient.Patient okayed to transfer to floor on telemetry.
--- NOTE | 2017-01-04 07:00 | NUR ---
Received report from YEYO Miguel. Patient currently asleep, arouses easily.
--- NOTE | 2017-01-04 07:53 | NUR ---
Patient taken breakfast tray. POC and transfer to floor discussed.
--- NOTE | 2017-01-04 09:10 | NUR ---
Patient sleeping at this time.
--- NOTE | 2017-01-04 09:31 | NUR ---
Nutrition follow-up: Pt is now in ICU due to breathing issues Diet: Consistent CHO PO Intake ~75-100% of meals Labs reviewed +BM Wt: 170# PO intake is good at this time RDN following.
--- NOTE | 2017-01-04 09:40 | NUR ---
AM meds given per orders. Coreg late due to failed pyxis drawer.
--- NOTE | 2017-01-04 09:45 | NUR ---
Pablo oquendo D/C per order. No complaints from patient.
--- NOTE | 2017-01-04 09:56 | NUR ---
Attempted to call report, nurse off of unit. Will return call
--- NOTE | 2017-01-04 11:08 | NUR ---
ARRIVE TO ROOM VIA WHEELCHAIR FROM ICU. REPORT RECIEVED FROM YEYO SANCHEZ. ALERT AND ORIENTED X4. PHYSICAL THERAPY ARRIVE TO ROOM FOR CONSULT. DENIES PAIN OR SOB. SCDs ON BUT NOT ATTACHED TO MACHINE WHILE UP IN CHAIR. CONTINUE PLAN OF CARE. VITAL SIGNS STABLE. BP-115/60, P-90bpm. CHAIR LOCKED. CALL LIGHT IN REACH. SWAP CAP PLACED ON LT FA IV SL.
--- NOTE | 2017-01-04 19:35 | NUR ---
RECEIVED REPORT, 022L, IV-LAC-SL, [id number], SCD ARE ON, BED IS LOW, SRX2, DENIES ANY NEEDS, CALL LIGHT IN REACH, WILL CONTINUE TO MONITOR
[2017-01-05 03:36] VITALS: BP 133/61
--- NOTE | 2017-01-05 03:36 | NUR ---
ASSESSMENT COMPLETE, PT SLEEPING, NO DISTRESS NOTICED, CALL LIGHT IN REACH, WILL CONTINUE TO MONITOR
[2017-01-05 05:47] LABS: BASOPHILS 0.1 % (0.0-2.0); EOSINOPHILS 0 % (0-7); HEMATOCRIT 38.6 % (36.0-48.0); HEMOGLOBIN 11.6 g/dL (12-16); IMMATURE GRANULOCYTES 0.3 % (0-5); LYMPHOCYTES 8.1 % (15-50); MCH 27.6 pg (26.0-34.0); MCHC 30.1 g/dL (31.0-37.0); MCV 91.7 fL (80.0-100.0); MEAN PLATELET VOLUME 10.1 fL (7.4-10.4); MONOCYTES 5.7 % (2-11); NEUTROPHILS 85.8 % (40-80); RBC 4.21 10x6/uL (4.00-5.40); RDW 15.6 % (11.5-14.5)
[2017-01-05 06:00] LABS: ANION GAP 6.9 mmol/L (8-16); CALCIUM 9.1 mg/dL (8.5-10.1); CARBON DIOXIDE 38.4 mmol/L (21.0-32.0); MAGNESIUM - SERUM 2.1 mg/dL (1.8-2.4); POTASSIUM - SERUM 4.3 mmol/L (3.5-5.1)
[2017-01-05 06:04] LABS: CREATININE - SERUM 1.1 mg/dL (0.6-1.3)
[2017-01-05 06:10] LABS: PLATELET COUNT 261 10x3/uL (130-400); WBC 16.1 10x3/uL (4.8-10.8)
[2017-01-05 06:22] VITALS: BP 130/56
--- NOTE | 2017-01-05 07:33 | NUR ---
PT SITTING UP IN BED DENIES NEEDS WILL CONT TO MONITOR.
[2017-01-05 09:05] VITALS: BP 146/70
--- NOTE | 2017-01-05 09:40 | CN ---
PATIENT NAME:DIANE DICK MEDICAL RECORD: [id number] : 36 LOCATION:D. D.2136 ADMIT DATE: 01/02/17 ACCOUNT: [id number] CONSULTING PHYSICIAN: RENATA SPENCE MD REFERRING PHYSICIAN: JAMIL LAW MD DATE OF CONSULTATION: 01/03/2017 Consult Note CONSULT REQUESTING PHYSICIAN: Jamil Law MD REASON FOR CONSULTATION: Acute hypoxic respiratory failure, pneumonia, and pulmonary edema. HISTORY OF PRESENT ILLNESS: Ms. Dick is a 76-year-old female, very well known to me, who has a history of COPD, home oxygen dependent. According to the patient, she did well on Monday, then afternoon, she has a fever and chill and she was feeling very weak. She was coughing. The patient was brought into the ER. On evaluation, she has significant leukocytosis and has pulmonary infiltrate. The patient was admitted for pneumonia. This morning, she has a bit more shortness of breath. The ABG was done and the CO2 was about 50. Denies any chest pain. REVIEW OF SYSTEMS: CONSTITUTIONAL: She has fever and chills. HEENT: She has sinus congestion. RESPIRATORY: As in history of present illness. CARDIOVASCULAR: She has pulmonary edema, elevated BNP. GASTROINTESTINAL: No chest pain. Other review of systems is negative. PAST MEDICAL HISTORY: 1. COPD. 2. Chronic hypoxic respiratory failure, on home oxygen. 3. Congestive heart failure with diastolic dysfunction. 4. Mitral regurgitation. 5. History of anemia. 6. Hypertension. 7. Coronary artery disease, status post cardiac stent placement. 8. Paraganglioma. 9. Hyperlipidemia. 10. Hypertension. PAST SURGICAL HISTORY: 1. She has a left total knee surgery. 2. Arthroplasty. 3. Pinning of the left hip fracture. 4. Anterior cervical fusion. 5. She has cardiac catheterization and stent placement. ALLERGIES: SHE IS ALLERGIC TO CODEINE. PRESENT MEDICATIONS: Tutor was reviewed. PERSONAL AND SOCIAL HISTORY: The patient is a nonsmoker and nondrinker. She is CONSULT REPORT [id number] DIANE DICK and lives with her . FAMILY HISTORY: Significant for diabetes and heart disease. PHYSICAL EXAMINATION: GENERAL: Now, the patient is lying comfortably. She is not in acute distress. VITAL SIGNS: The blood pressure is 105/58, pulse is 93, respirations 21, temperature 98.8 and SpO2 is 96% on 2 liters nasal cannula. HEENT: Conjunctivae are pink. Sclerae nonicteric. NECK: Supple, no JVD. CHEST: There are bilateral crackles. No wheezing. HEART: Rhythm regular, normal sound, no murmur. ABDOMEN: Soft, bowel sounds present. No hepatosplenomegaly. RECTAL: Deferred. EXTREMITIES: No cyanosis, no clubbing, no pedal edema. SKIN: Warm, normal turgor. CENTRAL NERVOUS SYSTEM: The patient is awake and alert. There is no obvious cranial nerve abnormality. The gait was not tested. LABORATORY DATA: The urine culture is positive for Gram-negative rods. IMPRESSION: 1. Srusa-ln-zwkeybk hypoxic hypercapnic respiratory failure with compensated respiratory acidosis and acute exacerbation of chronic obstructive pulmonary disease. 2. Pneumonia, bilateral consistent with community-acquired pneumonia. 3. Pulmonary edema. 4. Congestive heart failure with chronic diastolic dysfunction. 5. Mitral regurgitation. 6. Leukocytosis. RECOMMENDATION: 1. Continue Rocephin. I will add Levaquin for Gram-negative rods. Start methylprednisolone IV, albuterol/ipratropium nebulizer, Brovana, budesonide nebulizer, Xanax for anxiety. 2. Supplemental oxygen. 3. Check ammonia level, BiPAP if required. Dr. Law, once again, thanks for involving me in the care of Ms. Dick. TRANSINT:[id number] Voice Confirmation ID: [id number] DOCUMENT ID: [id number] RENATA SPENCE MD at 0940 CC: JAMIL LAW MD [id number] DICTATION DATE: 01/03/17 1420 ACQUISITION CONSULTANT: 01/03/17 2212 ADM IN [facility] [address] [facility] [place] [address]
--- NOTE | 2017-01-05 09:44 | NUR ---
PT WALKED WITH PHYSICAL THERAPY THIS AM. PT WANTED TO TRY AND WALK AROUND NURSING STATION WITHOUT HER O2. PT WAS ON 2L. KANE GOT PT PRISON AROUND NURSING STATION AND PT DESATED TO 61%. KANE FROM PT REAPPLIED O2 AND PT GOT BACK UP TO 91-91% WHEN SHE GOT BACK TO HER ROOM WILL PASS ON IN REPORT TO KEEP O2 ON DURING WALKS.
--- NOTE | 2017-01-05 13:35 | NUR ---
AMBULATING IN HALLWAY WITH PT EMMANUELLE/KANE. TOLERATING WELL
--- NOTE | 2017-01-05 13:39 | NUR ---
Nutrition follow-up: Diet: ADA consistent CHO PO intake 100% of most meals Labs reviewed Wt: 170# PO intake good at this time. RDN following.
--- NOTE | 2017-01-05 16:13 | NUR ---
Patient Name: DIANE DICK Encounter No: [id number] : 1940 Primary Insurance: MEDICARE A & B Anticipated DC Date: Planned Disposition: Home VS INPT REHAB External Planned Provider: [facility] INPATIENT REHAB DCP follow-up note: CM SPOKE TO KANE OF PHYSICAL THERAPY WHO REPORTED THAT HE WALKED PT THIS MORNING AND ALTHOUGH WALKING 250 FEET, SHE HAD TO TAKE 5 STOPS AND HER OXYGEN LEVEL DROPPED LOW ON ROOM AIR AND TOOK SOME TIME TO RECOVER ON 3 LITERS OXYGEN. KANE FELT PT MAY BENEFIT FROM INPATIENT REHAB SERVICES. CM MET WITH PT IN ROOM. PT REPORTS THAT THE DOCTOR MAY BE LETTING HER GO TOMORROW AND SHE IS WORRIED AND WANTS TO MAKE SURE SHE IS DOING BETTER BEFORE GOING HOME; PT REPORTS SHE WAS GOING TO GO WITH HER SPOUSE TO [place] FOR A CONFERENCE BUT NOW IS NOT BECAUSE SHE DOESN'T WANT TO BE OUT OF TOWN WITH HER MEDICAL CONDITION. CM DISCUSSED REHAB OPTIONS, DISCUSSED PROCESS OF DOCTOR ORDERING IF IN AGREEMENT WITH NEED FOR EVALUATION AND THEN THE SCREENING PROCESS. PT WOULD LIKE TO BE CONSIDERED FOR [facility] IF THE DOCTOR AGREES HER MEDICAL TEAM IS HERE. IMPORTANT MESSAGE FROM MEDICARE PROVIDED AND DISCUSSED. CM CALLED DR. WISE'S OFFICE, SPOKE TO NURSE REDD WHO WILL CHECK WITH DR. LAW AND LET CM KNOW. Ritchie Rodriguez, CASE MANAGEMENT
[2017-01-05 19:56] VITALS: BP 125/68
--- NOTE | 2017-01-05 22:29 | NUR ---
PT RESTING IN BED. HAS BEEN RELOCATED FROM ROOM 2135 TO 2103 DUE TO PT THAT WAS IN ROOM 2133 AND YELLING OUT PROFRANITY AND LOUD REMARKS REPETIVELY. PT IS ALERT/ORIENTED AND WATCHING TV. SALINE LOCK TO LEFT A/C. O2 @ 1.5 L/NC WITH NONLABORED RESPIRATIONS. VERY FAINT CRACKLES HEARD IN BILATERAL LOWER LUNG LEAL. SCDS IN USE. DENIES PAIN. CALL LIGHT IN REACH. CPOC.
[2017-01-06 00:24] VITALS: BP 101/46
[2017-01-06 04:23] VITALS: BP 123/55
[2017-01-06 05:38] LABS: BASOPHILS 0.2 % (0.0-2.0); EOSINOPHILS 0.5 % (0-7); HEMATOCRIT 40.1 % (36.0-48.0); IMMATURE GRANULOCYTES 0.5 % (0-5); LYMPHOCYTES 25.8 % (15-50); MCH 27.8 pg (26.0-34.0); MCHC 29.9 g/dL (31.0-37.0); MCV 92.8 fL (80.0-100.0); MONOCYTES 10.1 % (2-11); NEUTROPHILS 62.9 % (40-80); PLATELET COUNT 242 10x3/uL (130-400); RBC 4.32 10x6/uL (4.00-5.40); RDW 15.8 % (11.5-14.5)
[2017-01-06 05:44] LABS: ANION GAP 4.9 mmol/L (8-16); CALCIUM 9.3 mg/dL (8.5-10.1); CARBON DIOXIDE 39.9 mmol/L (21.0-32.0); CREATININE - SERUM 1.1 mg/dL (0.6-1.3); POTASSIUM - SERUM 3.8 mmol/L (3.5-5.1)
[2017-01-06 06:07] LABS: WBC 9.5 10x3/uL (4.8-10.8)
[2017-01-06 08:00] VITALS: BP 138/66
[2017-01-06] MEDS ORDERED: LEVAQUIN750 MG PO (08:11)
[2017-01-06] MEDS ORDERED: FLORAJEN3 CAPS460 MG PO (08:13)
--- NOTE | 2017-01-06 08:20 | NUR ---
PATIENT IS RESTING IN HER BED, HOB UP 30 DEGREES WHEN I ENTER. SHE REQUESTED ASSISTANCE OOB. SCD'S REMOVED. AIR CONDITIONING ADJUSTED PER HER REQUEST, WARM BLANKET TO SHOULDERS IN THE BEDSIDE CHAIR. SHE STATE SHTAT SHE HAS SOME PAIN IN HER LEFT HIP. MEDICATION PROVIDED PER ORDERS. SHE IS INTERESTED IN INPATIENT REHAB, SHE HAS STAYED WITH THEM BEFORE FOR REHAB ABD HAD A GOOD EXPERIENCE. SHE DENIED OTHER NEEDS. CALL LIGHT PLACED WITHIN HER REACH AND FRESH WATER PROVIDED. INSTRUCTED HER TO CALL FOR ANY NEEDS, QUESTIONS.
--- NOTE | 2017-01-06 10:30 | NUR ---
Patient Name: DIANE DICK Encounter No: [id number] : 1940 Primary Insurance: MEDICARE A & B Anticipated DC Date: 01-06-2017 Planned Disposition: Inpatient Rehab External Planned Provider: [facility] INPATIENT REHAB DCP follow-up note: RN DEISY MCGOVERN SPOKE TO LIAM OF INPATIENT REHAB, THEY PLAN TO ACCEPT PT TODAY, FOR REHAB. PT NOTIFIED, IN AGREEMENT WITH DISCHARGE TO INPATIENT REHAB. [facility] INPATIENT REHAB TO CONTACT MED 2 NURSE WITH ROOM NUMBER WHEN READY TO ACCEPT PT AND NURSE REPORT. Ritchie Rodriguez, CASE MANAGEMENT
[2017-01-06 12:00] VITALS: BP 109/47
--- NOTE | 2017-01-06 15:06 | NUR ---
Patient Name: DIANE DICK Encounter No: [id number] : 1940 Primary Insurance: MEDICARE A & B Anticipated DC Date: 01-06-2017 Planned Disposition: Inpatient Rehab External Planned Provider: [facility] INPATIENT REHAB DCP follow-up note: CM RECEIVED CALL FROM LIAM OF [facility] INPATIENT REHAB, REHAB READY TO ACCEPT PT, WILL ADMIT TO ROOM 1117-B. PT, BEDSIDE NURSE AND FLOW COORINATOR NURSE NOTIFIED. NURSE REPORT TO BE CALLED TO NURSE FIGUEROA AT EXTENTION 1160. NO FURHTER DISCHARGE NEEDS IDENTIFIED. Ritchie Rodriguez, CASE MANAGEMENT
--- NOTE | 2017-01-06 16:49 | NUR ---
REPORT CALLED TO HENRY ON THE INPATIENT REHAB UNIT PRIOR TO WHEELING HER DOWN IN A WHEELCHAIR WITH TILE AND MOTTLE SUPERVISOR ASSISTANCE. SHE WAS ABLE TO STAND FROM THE BEDSIDE CHAIR WITH ASSIST X1. HER GATE WAS UNSTEADY TO THE WHEELCHAIR AND SHE CONFESSES THAT SHE IS WEAK AND NEEDS TO BE STRONGER PRIOR TO GOING HOME TO BE WITH .
--- NOTE | 2017-01-10 19:20 | DS ---
PATIENT:DIANE DICK :36 MEDICAL RECORD: [id number] DISCHARGE SUMMARY ADMISSION DATE: 01/02/17 DISCHARGE DATE: 01/06/17 DATE OF ADMISSION: 01/02/2017 DATE OF DISCHARGE: 01/06/2017 ADMISSION DIAGNOSES: Sepsis secondary to urinary tract infection, history of cardiovascular disease with recent stenting, history of paraganglioma, congestive heart failure, hypertension. DISCHARGE DIAGNOSES: Sepsis secondary to urinary tract infection Escherichia coli, cardiovascular disease, history of paraganglioma, congestive heart failure, hypertension. HOSPITAL COURSE: The patient had an uneventful hospital course with her comorbidities. Pulmonology was consulted as well. Continues to improve from her multiple comorbidities and recent interventions. She is very weak, but she has improved. We will discharge to rehab. She has been changed to oral antibiotics. She is afebrile. PHYSICAL EXAMINATION: VITAL SIGNS: On discharge, temperature 97.3, blood pressure is 123/55, heart rate 86, respirations 16, O2 sats 93% on room air. GENERAL: Alert, oriented. HEART: Regular rate and rhythm. LUNGS: Clear. ABDOMEN: Soft, nontender. Bowel sounds in all 4 quadrants. EXTREMITIES: Present times 4. NEUROLOGIC: Intact. LABORATORY DATA: CBC on discharge, white count 9.5, hemoglobin 12, hematocrit 40.1, platelets 242. Chemistry shows a sodium of 144, potassium 3.8, chloride 103, bicarbonate 39, BUN 39, creatinine 1.1, magnesium 2.0. DISPOSITION: The patient is discharged to rehab in significantly improved condition. DISCHARGE MEDICATIONS: Per med rec. FOLLOWUP: Follow up with Dr. Hillman after discharge from rehabilitation. See chart for further details. TRANSINT:[id number] Voice Confirmation ID: [id number] DOCUMENT ID: [id number] CARISSA DESHPANDE DO at 1920 CC: [id number] DICTATION DATE: 01/06/17819 BIOSECURITY OFFICER: 01/06/17 2159 DIS IN 01/06/17 [facility] [address] [place] [address]
== END 2017-01-06 16:58 | DRG 871 ==
LOC: D.ER 22:16 → D.M2 01-02 00:56 → D.ICU 01-03 09:30 → D.M2 01-04 10:45
PROVIDERS: Family Medicine; Internal Medicine Pulmonary Disease; ADMIT Family Medicine
PROC: 0T9B70Z Drainage of Bladder with Drainage Device, Via Natural or Artificial Opening (ICD-10-PCS; principal; 2017-01-03)
DX: A41.9 Sepsis, unspecified organism (principal); J18.9 Pneumonia, unspecified organism; J96.21 Acute and chronic respiratory failure with hypoxia; N39.0 Urinary tract infection, site not specified; J44.0 Chronic obstructive pulmonary disease with (acute) lower respiratory infection; J44.1 Chronic obstructive pulmonary disease with (acute) exacerbation; I50.32 Chronic diastolic (congestive) heart failure; B96.20 Unspecified Escherichia coli [E. coli] as the cause of diseases classified elsewhere; I34.0 Nonrheumatic mitral (valve) insufficiency; I25.10 Atherosclerotic heart disease of native coronary artery without angina pectoris; Z95.5 Presence of coronary angioplasty implant and graft; E78.5 Hyperlipidemia, unspecified; I11.0 Hypertensive heart disease with heart failure

== ENCOUNTER 2017-01-06 16:57 | Inpatient (IN) | payer MEDICARE, OTHER ==
[~2017-01-06] VITALS: Ht 154.9 cm; Wt 73.0 kg
[~2017-01-06 16:57] MED LIST changes: +FLORAJEN3 CAPS460 MG PO; +LEVAQUIN750 MG PO; +PROTONIX20 MG PO
[2017-01-06 17:25] VITALS: BP 100/63; BMI 30.5
--- NOTE | 2017-01-06 19:35 | NUR ---
PT IN BED WITH EYES OPEN AND WATCHING TV. ASSIST REQUESTED FOR HELP UP OFF BED TO WALKER TO GO TO BATHROOM. YELLOW URINE NOTED. ASSIST GIVEN BACK INTO BED FOR POSITIONING. NO OTHER NEEDS MADE KNOWN. CALL LIGHT IN REACH
--- NOTE | 2017-01-06 22:25 | NUR ---
PT IN BED AND UPON AWAKENING PT REQUEST ASSISTANCE UP TO GO TO BATHROOM. YELLOW URINE NOTED. MEDICATIONS GIVEN WITH NO PROBLEMS ONCE BACK IN BED. NO NEEDS MADE KNOWN. CALL LIGHT IN REACH.
[2017-01-07 03:50] VITALS: BP 100/63
[2017-01-07 07:00] VITALS: BP 113/79
--- NOTE | 2017-01-07 07:17 | NUR ---
PT UP OUT OF BED IN THERAPY. NO CONCERN MADE KNOWN AT THIS TIME.
[2017-01-07 07:58] LABS: BASOPHILS 0.3 % (0.0-2.0); EOSINOPHILS 1.9 % (0-7); HEMOGLOBIN 11.5 g/dL (12-16); IMMATURE GRANULOCYTES 0.6 % (0-5); LYMPHOCYTES 21.2 % (15-50); MCH 27.8 pg (26.0-34.0); MCHC 29.5 g/dL (31.0-37.0); MCV 94.4 fL (80.0-100.0); MEAN PLATELET VOLUME 9.5 fL (7.4-10.4); PLATELET COUNT 265 10x3/uL (130-400); RBC 4.13 10x6/uL (4.00-5.40); RDW 15.6 % (11.5-14.5); WBC 11.7 10x3/uL (4.8-10.8)
--- NOTE | 2017-01-07 08:00 | NUR ---
SHIFT ASSMT COMPLETED.SITTING UP IN CHAIR AFTER VISITING WITH THERAPY.BREAKFAST GIVEN.
[2017-01-07 08:13] LABS: ANION GAP 4.5 mmol/L (8-16); CALCIUM 8.9 mg/dL (8.5-10.1); CREATININE - SERUM 0.8 mg/dL (0.6-1.3); POTASSIUM - SERUM 4.1 mmol/L (3.5-5.1)
[2017-01-07 08:14] LABS: CARBON DIOXIDE 42.6 mmol/L (21.0-32.0)
[2017-01-07 09:49] VITALS: Ht 154.9 cm; Wt 73.0 kg
--- NOTE | 2017-01-07 12:00 | NUR ---
IN CHAIR EATING LUNCH.
--- NOTE | 2017-01-07 16:00 | NUR ---
VISITING WITH FAMILY.CL IN REACH.
--- NOTE | 2017-01-07 19:40 | NUR ---
PT IN BED WATCHING TV. REQUEST ASSISTANCE WITH REPOSITIONING WITH ASSISTANCE GIVEN. PT STATES INCREASED COMFORT. FRESH ICE WATER GIVEN. NO OTHER NEEDS MADE KNOWN. CALL LIGHT IN REACH.
[2017-01-07 22:45] VITALS: BP 123/57
--- NOTE | 2017-01-07 23:10 | NUR ---
PT IN BED WITH EYES CLOSED AND CHEST RISING. NO SIGN/SYPTOMS OF DISTRESS NOTED. CALL LIGHT IN REACH. WILL CONTINUE TO OBSERVE.
--- NOTE | 2017-01-08 03:07 | NUR ---
PT IN BED WITH EYES CLOSED AND CHEST RISING. NO SIGN/SYPMTOMS OF DISTRESS NOTED. CALL LIGHT IN REACH. WILL CONTINUE TO OBSERVE.
--- NOTE | 2017-01-08 06:24 | NUR ---
PT IN BED WITH EYES CLOSED AT THIS TIME. UP AFTER MEDICATIONS GIVEN PER MAR TO BATHROOM. PT STATED SHE HAD A BM. NO CONCERNS NOTED AT THIS TIME. CALL LIGHT IN REACH.
[2017-01-08 08:00] VITALS: BP 116/47
--- NOTE | 2017-01-08 08:00 | NUR ---
SHIFT ASSMT COMPLETED.DENIES NEEDS.O2 ON.ASSISTED OOB TO BATHRM USING WALKER AND BACK.BREAKFAST GIVEN.CL IN REACH.
--- NOTE | 2017-01-08 12:00 | NUR ---
SITTING UP IN CHAIR.EATING LUNCH.
--- NOTE | 2017-01-08 16:00 | NUR ---
IV LAC DC'D WITH CATH TIP INTACT.REMAINS SITTING UP IN CHAIR.
--- NOTE | 2017-01-08 23:00 | NUR ---
PT RECEIVED IN BED TALKING ON PHONE. ASKS FOR ASSISTANCE OUT OF BED AND AMBULATES SELF TO BATHROOM WITH CANE. SLOW STEADY GAIT. THREE TRIPS TO BATHROOOM THIS SHIFT AT THIS TIME. NO OTHER NEEDS MADE KNOWN. CALL LIGHT IN REACH.
[2017-01-08 23:24] VITALS: BP 111/51
--- NOTE | 2017-01-09 01:15 | NUR ---
PT IN BED WITH EYES OPEN. JUST RETURNED FROM BATHROOM FOR URINATION. NO COMPLAINTS OR CONCERNS MADE KNOWN. CALL LIGHT IN REACH.
[2017-01-09 06:16] LABS: BASOPHILS 0.1 % (0.0-2.0); EOSINOPHILS 0.7 % (0-7); HEMATOCRIT 36.2 % (36.0-48.0); HEMOGLOBIN 10.8 g/dL (12-16); IMMATURE GRANULOCYTES 1.1 % (0-5); LYMPHOCYTES 19.9 % (15-50); MCH 27.7 pg (26.0-34.0); MCHC 29.8 g/dL (31.0-37.0); MCV 92.8 fL (80.0-100.0); MEAN PLATELET VOLUME 9.6 fL (7.4-10.4); NEUTROPHILS 70.2 % (40-80); PLATELET COUNT 264 10x3/uL (130-400); RDW 15.5 % (11.5-14.5); WBC 10.7 10x3/uL (4.8-10.8)
--- NOTE | 2017-01-09 06:29 | NUR ---
PT IN BED WATCHING TV. NO NEEDS MADE KNOWN. CALL LIGHT IN REACH.
[2017-01-09 06:43] LABS: CALC OSMOLALITY 287 mosm/kg (275-300); CALCIUM 9.3 mg/dL (8.5-10.1); CHLORIDE - SERUM 99 mmol/L (98-107); CREATININE - SERUM 0.7 mg/dL (0.6-1.3); GLUCOSE 111 mg/dL (74-106); POTASSIUM - SERUM 4.4 mmol/L (3.5-5.1); SODIUM 142 mmol/L (136-145); UREA NITROGEN 25 mg/dL (7-18); eGFR NON AFRICAN AMERICAN 86 mL/min (90-120)
--- NOTE | 2017-01-09 07:26 | RHP ---
PATIENT: DIANE DICK MEDICAL RECORD: [id number] ACCOUNT: [id number] LOCATION:[facility]1117 : [birth year] ADMISSION DATE: 01/06/17 REHABILITATION HISTORY AND PHYSICAL EXAMINATION POST ADMISSION PHYSICIAN EXAMINATION DATE OF ADMISSION TO REHAB: 01/06/2017 ADMITTING DIAGNOSES: Acute on chronic hypoxic hypercapnic failure with compensated respiratory acidosis and chronic obstructive pulmonary disease, pneumonia consistent with community-acquired and pulmonary edema. The patient is admitted to inpatient rehabilitation for acute on chronic hypoxic hypercapnic failure with compensated respiratory acidosis and acute exacerbation of chronic obstructive pulmonary disease. She has had pneumonia consistent with community-acquired of pulmonary edema. HISTORY OF PRESENT ILLNESS: A 76-year-old female patient, who states that she was in her normal state of health. She attended caodaism on January 01, upon returning home, she could not fix lunch and just does not feel well, but later on the afternoon began have chills and began having rigors. The patient was seen in the Emergency Room where she was found to be hypotensive and have urinary tract infection. On evaluation, she had significant leukocytosis and pulmonary infiltrate. She was admitted for pneumonia during her acute stay, she was placed in ICU on January 03 due to decreased oxygen saturation, abnormal ABGs, she was then placed on the floor after becoming stable. She got a history of COPD and is dependent on home O2. She is moderate to max assist with mobility at this time. She is usually on a cane and does quite well. Plans on returning home with her and return back to her prior level of functioning. COMORBIDITIES: Includes pulmonary infiltrate, hypotension, UTI, sepsis secondary to UTI, leukocytosis, CHF, COPD, oxygen independence at home, mitral regurg and hypertension. PAST MEDICAL HISTORY: Significant for COPD, chronic hypoxic respiratory failure, congestive heart failure, mitral regurgitation, history of iron deficiency anemia, coronary artery disease, history of hyperlipidemia and hypertension. PAST SURGICAL HISTORY: Includes bilateral knee surgery, pinning of her left hip, anterior cervical fusion, cardiac catheterization in the past, appendectomy, cholecystectomy, tubal ligation, vein stripping, and cardiac stents. ALLERGIES: CODEINE. CURRENT MEDICATIONS: Include Tylenol 650 mg q.4 hours p.r.n., thiamine daily, prednisone 20 mg daily, Protonix 40 mg daily, Levaquin 750 mg daily, Floranex daily, Imdur 30 mg daily, Plavix 75 mg daily, vitamin D daily, aspirin chewable 81 mg daily, zolpidem 5 mg q.h.s., Pravachol 20 mg q.h.s., potassium 20 mEq t.i.d., Singulair 10 mg q.h.s., DuoNeb updrafts q.4 hours p.r.n., furosemide 40 mg b.i.d., Brovana 15 mcg b.i.d., fluticasone HFA 44 mcg 1 inhalation b.i.d., and polyethylene glycol 17 grams in 8 ounce of water daily. HABITS: No current alcohol or tobacco use. HISTORY AND PHYSICAL [id number] DIANE DICK FAMILY HISTORY: Noncontributory. SOCIAL HISTORY: The patient returns at home with her family. REVIEW OF SYSTEMS: GENERAL: Does complain of weakness. HEENT: Does complain of cold, cough and congestion. CARDIOVASCULAR: Denies any chest pain. LUNGS: Does complain of shortness of breath. PHYSICAL EXAMINATION: VITAL SIGNS: Stable, afebrile. GENERAL: Elderly female, in no acute distress, alert upon exam. HEENT: Normocephalic and atraumatic. Mucosa moist. NECK: Supple. No lymphadenopathy. LUNGS: Coarse breath sounds bilaterally. CARDIOVASCULAR: Regular rate and rhythm. ABDOMEN: Benign. EXTREMITIES: No clubbing, cyanosis or edema. NEUROLOGIC: Intact. LABORATORY DATA: Her white count is 11.7, H&H of 11 and 39, and platelet count was noted to be 265. Admit sodium shows sodium of 141, potassium 4.1, BUN and creatinine of 23 and 0.8. ASSESSMENT: This is a 76-year-old female patient admitted to rehab with a working diagnosis of uxeva-fd-[id number] hypoxic hypercapnic failure with a compensated respiratory acidosis and exacerbation of chronic obstructive pulmonary disease. The patient has potential to make improvement. We instituted the following multidisciplinary therapies including to, but not limited to physical, occupational, respiratory, speech, nutritional services, prosthetics and orthotics. Given her complex condition and risk for more complications, rehabilitation services cannot be provided at a low level of care such as a intermediate facility. PLAN: 1. Admit to [facility] rehab for intensive inpatient therapy to include the following disciplines: A. Physical therapy to improve gait, all transfer skills and bed mobility to a modified independent level. B. Occupational therapy to improve daily living to a modified independent level. C. Case management to assist with discharge planning and placement options. D. Nutrition to assist with nutritional needs. E. Rehabilitation nursing to assist in monitoring the patient's underlying medical conditions and to assist with any type of bowel or bladder management. 2. The patient's current medications and medical care will be continued. 3. The patient will be placed on standard fall precautions. 4. The patient's estimated length of stay is approximately 7-10 days. 5. We will go ahead and monitor her breathing status closely and watch for any changes in her CO2 level. TRANSINT:[id number] Voice Confirmation ID: [id number] DOCUMENT ID: [id number] HISTORY AND PHYSICAL [id number] DIANE DICK SCOTT MD at 0726 CC: [id number] DICTATION DATE: 01/08/17 1221 FURNACE FIRER: 01/08/17 1702 ADM IN [place] [id number] [place] [id number]
--- NOTE | 2017-01-09 07:27 | NUR ---
RESTING QUIETLY IN BED CALL LIGHT IN REACH
[2017-01-09 11:53] VITALS: BP 127/56
--- NOTE | 2017-01-09 12:32 | NUR ---
NUTRITION MONITORING & EVAL CHART REVIEWED. PT WITH VISITOR. TOLERATING ADA DIET, 100% INTAKE RECENT MEAL. RD FOLLOWING
--- NOTE | 2017-01-09 15:00 | NUR ---
IN ROOM IN BED WATCHING TV CALL LIGHT IN REACH
--- NOTE | 2017-01-09 18:13 | NUR ---
SITTING IN CHAIR IN ROOM. ATE SUPPER WHILE SITTING UP. CALL LIGHT IN REACH
--- NOTE | 2017-01-09 20:00 | NUR ---
PT IS RESTING IN BED WITH EYES OPEN. ALERT AND ORIENTED X 3. DENIES ACUTE DISCOMFORT AT THIS TIME. O2 IS ON @ 2LPM PER NC. NO SOB NOTED. SR'S ARE UP X 2 IN BED. CALL LIGHT AND BEDSIDE TABLE ARE WITHIN EASY REACH.
--- NOTE | 2017-01-09 23:14 | NUR ---
RESTING QUIETLY IN BED WITH EYES CLOSED. RESPS ARE EVEN AND UNLABORED. NO ACUTE DISTRESS NOTED.
--- NOTE | 2017-01-10 00:45 | NUR ---
IN BED DOZING WHILE I WAS ASSESSING HER ROOMMATE. NO DISTRESS NOTED.
--- NOTE | 2017-01-10 01:33 | NUR ---
RESTING IN BED WITH EYES CLOSED.
--- NOTE | 2017-01-10 05:57 | NUR ---
PT RESTING IN BED WITH EYES CLOSED. NO DISTRESS NOTED.
--- NOTE | 2017-01-10 07:30 | NUR ---
RESTING QUIETLY IN BED OXYGEN IN PLACE CALL LIGHT IN REACH
[2017-01-10 08:19] VITALS: BP 131/64
--- NOTE | 2017-01-10 12:46 | NUR ---
EATING LUNCH IN ROOM
--- NOTE | 2017-01-10 14:25 | NUR ---
Nutrition Note: Pt food preferences obtained. Will change diet to Regular per pt request. Glucose WNL, RD following.
--- NOTE | 2017-01-10 18:14 | NUR ---
UP TO BATHROOM WITH MINIMAL ASST. IS ANXIOUS ABOUT GOING HOME TOMORROW.
[2017-01-10 19:35] VITALS: BP 129/55
--- NOTE | 2017-01-10 19:42 | NUR ---
PT RECEIVING RESPIRATORY THERAPY TREATMENT WATCHING TV, RESPIRAITONS REGULAR AND UNLABORED, NO S/S OF ACUTE DISTRESS.
--- NOTE | 2017-01-10 23:45 | NUR ---
PT IN BED WITH HOB AT 25 DEGREES, EYES CLOSED, CHEST RISING AND FALLING, BED IN LOWEST POSITION AND CALL LIGHT WITHIN REACH.
--- NOTE | 2017-01-11 04:37 | NUR ---
PT IN BED WITH HOB AT 25 DEGREES, EYES CLOSED, CHEST RISING AND FALLING, BED IN LOWEST POSITION AND CALL LIGHT WITHIN REACH.
[2017-01-11 07:10] LABS: BASOPHILS 0.1 % (0.0-2.0); EOSINOPHILS 0.1 % (0-7); HEMATOCRIT 36.7 % (36.0-48.0); HEMOGLOBIN 11.2 g/dL (12-16); IMMATURE GRANULOCYTES 1.1 % (0-5); LYMPHOCYTES 18.6 % (15-50); MCH 27.7 pg (26.0-34.0); MCHC 30.5 g/dL (31.0-37.0); MCV 90.8 fL (80.0-100.0); MEAN PLATELET VOLUME 9.8 fL (7.4-10.4); MONOCYTES 8.9 % (2-11); NEUTROPHILS 71.2 % (40-80); PLATELET COUNT 239 10x3/uL (130-400); RBC 4.04 10x6/uL (4.00-5.40); RDW 15.4 % (11.5-14.5); WBC 9.4 10x3/uL (4.8-10.8)
[2017-01-11 07:51] LABS: ANION GAP 5.5 mmol/L (8-16); CALCIUM 9.2 mg/dL (8.5-10.1); CREATININE - SERUM 0.8 mg/dL (0.6-1.3); POTASSIUM - SERUM 4.3 mmol/L (3.5-5.1)
[2017-01-11 07:54] LABS: CARBON DIOXIDE 43.8 mmol/L (21.0-32.0)
--- NOTE | 2017-01-11 08:00 | NUR ---
SHIFT ASSMT COMPLETED.CL IN REACH.PLAN FOR DISCHARGE TODAY.
[2017-01-11 08:18] VITALS: BP 131/71
--- NOTE | 2017-01-11 09:00 | NUR ---
PATIENT DISCHARGING HOME WITH SPOUSE, PATIENT DECLINES HOME HEALTH AT THIS TIME. NO NEW DMW NEEDED AT THIS TIME, HAS O2, NEBULIZER AND CANE. APPOINTMENTS: DR. LAW 01/19/17 @ 1:15, DR. SPENCE 02/08/17 @ 3:00. PATIENT CHOICE FORM (REFUSED HH) AND [facility] FORM EXPLAINED, SIGNED AND FILED IN CHART.PATIENT EDUCATED ON DEEP BREATHING EXERCISE.
--- NOTE | 2017-01-11 12:00 | NUR ---
REVIEWED DC MEDS AND [facility]OMECARE.STATES UNDERSTANDING.
--- NOTE | 2017-01-11 13:58 | NUR ---
DC'D TO HOME IN STABLE CONDITION WITH MOTHER.
== END 2017-01-11 13:30 | disposition home or self-care (01) | DRG 189 ==
LOC: D.REHAB 16:57
PROVIDERS: ADMIT Emergency Medicine
DX: J96.22 Acute and chronic respiratory failure with hypercapnia (principal); J18.9 Pneumonia, unspecified organism; A41.9 Sepsis, unspecified organism; E87.2 Acidosis; J81.1 Chronic pulmonary edema; J44.1 Chronic obstructive pulmonary disease with (acute) exacerbation; N39.0 Urinary tract infection, site not specified; J44.0 Chronic obstructive pulmonary disease with (acute) lower respiratory infection; I50.32 Chronic diastolic (congestive) heart failure; J96.21 Acute and chronic respiratory failure with hypoxia; I95.9 Hypotension, unspecified; D72.829 Elevated white blood cell count, unspecified; I34.0 Nonrheumatic mitral (valve) insufficiency; I11.0 Hypertensive heart disease with heart failure; Z99.81 Dependence on supplemental oxygen

== ENCOUNTER 2017-06-13 06:47 | Day surgery (SDC) | payer MEDICARE, OTHER ==
[~2017-06-13] VITALS: Ht 154.9 cm; Wt 72.6 kg
--- NOTE | ~2017-06-13 | OP ---
PATIENT NAME: DIANE DICK MEDICAL RECORD: [id number] :38 LOCATION:D.OPS ADMISSION DATE: SURGEON: CARISSA GONZALEZ MD DATE OF OPERATION: 06/13/2017 PREOPERATIVE DIAGNOSIS: History of a complex polyp at 60 cm. POSTOPERATIVE DIAGNOSIS: History of a complex polyp at 60 cm with no evidence of regrowth of the polyp. PROCEDURES: 1. Total colonoscopy to cecum. 2. Cold endoscopic biopsies of the polypoid scar and retreatment with the argon plasma instrument repair specialist. 3. Endoscopic submucosal tattooing in the area of the polypoid scar at 60 cm. 4. Tortuous colon likely due to adhesions. 5. Mild left-sided diverticulosis. SURGEON: Carissa Gonzalez MD. GEAR ROOM KEEPER: None. BLOOD LOSS: Minimal. ANESTHESIA: General. COMPLICATIONS: None. The risks, possible complications and alternatives to procedure were explained to the patient. She elects to proceed. The discussion specifically included, but was not limited to, bleeding requiring an emergency reoperation, infection and intestinal injury. OPERATIVE COURSE: The patient was conveyed to operating room electively on 06/13/2017. General anesthesia was induced by the anesthesia staff. The patient was placed in the Nixon position. A digital rectal examination was performed. A colonoscope was inserted through the anus. It was advanced with difficulty to the cecum. The prep was adequate. I slowly withdrew the endoscope. I irrigated and aspirated extensively. I utilized normal imaging as well as narrow band imaging. The scar at 60 cm was noted. I biopsied the scar utilizing the cold endoscopic biopsy forceps. I then retreated the area with the argon plasma instrument repair specialist utilizing the right colon setting in the forced mode. As this scar was difficult to identify, I advanced a sclerotherapy needle. Endoscopic tattooing was performed with 3 cc of Patricia ink and this was injected submucosally. I then withdrew the sclerotherapy needle. I continued to withdraw the endoscope. I dragged the folds. A retroflexed view was obtained in the rectum. I then unretroflexed the scope and removed it under direct vision. I will see the patient in my office in 2-3 weeks. If there has been no regrowth of polyp, I likely will turn the patient back over to Dr. Puentes for surveillance colonoscopies in the future. TRANSINT:[id number] Voice Confirmation ID: [id number] DOCUMENT ID: [id number] OPERATIVE REPORT [id number] DIANE DICK ROBERT MD CC: DI PUENTES MD [id number] DICTATION DATE: 06/13/17 1111 [employer] CONSULTANT: 06/13/[address] [facility] 06/13/17 [place] [id number]
[2017-06-13 07:14] LABS: BASOPHILS 0.4 % (0-2); EOSINOPHILS 2.5 % (0-7); HEMATOCRIT 37.7 % (36.0-48.0); HEMOGLOBIN 11.8 g/dL (12-16); IMMATURE GRANULOCYTES 0.1 % (0-5); LYMPHOCYTES 29.6 % (15-50); MCHC 31.3 g/dL (31.0-37.0); MCV 92.6 fL (80.0-100.0); MEAN PLATELET VOLUME 9.2 fL (7.4-10.4); MONOCYTES 8.6 % (2-11); NEUTROPHILS 58.8 % (40-80); RBC 4.07 10x6/uL (4.00-5.40); RDW 15.3 % (11.5-14.5); WBC 8.4 10x3/uL (4.8-10.8)
[2017-06-13 07:20] LABS: PLATELET COUNT 166 10x3/uL (130-400)
[2017-06-13 07:24] LABS: ANION GAP 6.7 mmol/L (8-16); CALCIUM 9.4 mg/dL (8.5-10.1); CARBON DIOXIDE 38.5 mmol/L (21.0-32.0); CREATININE - SERUM 0.9 mg/dL (0.6-1.3); POTASSIUM - SERUM 3.2 mmol/L (3.5-5.1)
[2017-06-13] MEDS ORDERED: COREG6.25 MG (08:02)
[2017-06-13 08:27] VITALS: BP 114/61; Ht 154.9 cm; Wt 72.6 kg
== END 2017-06-13 12:40 | disposition home or self-care (01) ==
LOC: D.OPS 06:47 → D.PAN 08:50 → D.OPS 09:00 → D.PAN 10:15 → D.OPS 12:40
PROVIDERS: Anesthesiology
DX: Z86.010 Personal history of colon polyps (principal); K63.89 Other specified diseases of intestine; K57.30 Diverticulosis of large intestine without perforation or abscess without bleeding; Z01.812 Encounter for preprocedural laboratory examination

== ENCOUNTER → 2017-07-10 08:47 | Outpatient (CLI) | payer MEDICARE, OTHER ==
[2017-06-13 08:27] VITALS: BMI 30.3
[~2017-07-10 08:47] MED LIST changes: +COREG6.25 MG
[2017-07-10 11:14] LABS: CREATININE - SERUM 0.9 mg/dL (0.6-1.3)
[2017-07-11 09:15] LABS: IMMUNOGLOBULIN E 72 IU/mL (0-100)
[2017-07-11 12:15] LABS: IMMUNOGLOBULIN A 280 mg/dL (64-422)
== END | disposition home or self-care (01) ==
LOC: D.RT 08:47
PROVIDERS: Internal Medicine Pulmonary Disease
DX: J98.4 Other disorders of lung (principal); J45.909 Unspecified asthma, uncomplicated

== ENCOUNTER 2017-08-18 09:00 | Outpatient (CLI) | payer MEDICARE, OTHER ==
[2017-06-13 08:27] VITALS: BMI 30.3
== END 2017-08-18 23:59 | disposition home or self-care (01) ==
LOC: D.MAMMO 09:00
DX: Z12.31 Encounter for screening mammogram for malignant neoplasm of breast (principal)

== ENCOUNTER → 2017-11-09 14:11 | Outpatient (CLI) | payer MEDICARE, OTHER ==
[2017-06-13 08:27] VITALS: BMI 30.3
== END | disposition home or self-care (01) ==
LOC: D.CT 14:11
DX: S09.90XA Unspecified injury of head, initial encounter (principal); X58.XXXA Exposure to other specified factors, initial encounter; Y93.89 Activity, other specified; Y92.89 Other specified places as the place of occurrence of the external cause; M54.5 Low back pain; M54.6 Pain in thoracic spine

== ENCOUNTER → 2017-11-22 14:48 | Outpatient (CLI) | payer MEDICARE, OTHER ==
[2017-06-13 08:27] VITALS: BMI 30.3
== END | disposition home or self-care (01) ==
LOC: D.MRI 11-21 11:24
DX: M54.6 Pain in thoracic spine (principal); M54.5 Low back pain